=== PATIENT | female | born 1970 | race Caucasian/White ===

== ENCOUNTER 2020-05-21 09:43 | Outpatient (REF) | payer BC, SELFPAY ==
--- NOTE | 2020-05-21 09:48 | MM_ITS ---
EXAMINATION: MM SCREENING DIGITAL BREAST TOMOSYNTHESIS, BILATERAL CLINICAL INFORMATION: Screening. Asymptomatic. Family history breast cancer 2 sisters, 47-years and 46-years. The lifetime risk of breast cancer based on the Tyrer-Cuzick Model is 38%. COMPARISON: Mammography: 03/06/2019, 01/31/2018, 01/30/2017, 01/22/2017, 01/21/2016 TECHNIQUE: Digital breast tomosynthesis is performed in both the craniocaudal and mediolateral oblique views along with computer-aided detection (CAD). Synthesized 2D images are generated from the tomosynthesis. FINDINGS: There are scattered areas of fibroglandular density (ACR BI-RADS breast composition Category b). There are no significant masses, abnormal calcifications, or other abnormalities. Parenchymal pattern is similar to prior exams. There is no developing density. The axilla and skin contours are unremarkable. There is a biopsy clip marker again seen mid upper outer right breast. No significant changes. MM/MM tomosynthesis screening BI IMPRESSION: No mammographic evidence of malignancy. ASSESSMENT: BI-RADS 1: Negative RECOMMENDATION: 1. Routine annual mammography screening. 2. The lifetime risk of breast cancer based on the Tyrer-Cuzick Model is 38%. Additional annual adjunct screening with breast MRI may be of benefit in women with a risk score of 20% or greater. This patient's information was entered into a reminder system with a target due date for their next mammogram.
== END 2020-05-21 09:44 | disposition home or self-care (01) ==
LOC: HO.MAMMO 09:43
PROVIDERS: PCP Physician Assistant; Visit Provider Physician Assistant
DX: Z12.31 Encounter for screening mammogram for malignant neoplasm of breast (principal)
CPT/HCPCS: 77063; 77067

== ENCOUNTER 2020-09-28 21:17 | Emergency (ER) | payer BC, SELFPAY ==
--- NOTE | ~2020-09-28 | XR_ITS ---
EXAMINATION: XR HAND, RIGHT CLINICAL INFORMATION: Check for foreign body COMPARISON: 09/28/2020 TECHNIQUE: PA, lateral, and oblique views of the right hand. FINDINGS: No fracture or dislocation. Alignment is anatomic. Joint spaces are maintained. Radiopaque soft tissue densities seen on the prior radiograph and the second digit are no longer present. XR/XR hand RT 2V IMPRESSION: The previous radiopaque densities in the second digit soft tissues are normal longer present.
--- NOTE | ~2020-09-28 | XR_ITS ---
EXAMINATION: XR HAND, RIGHT CLINICAL INFORMATION: Right hand laceration COMPARISON: None TECHNIQUE: PA, lateral, and oblique views of the right hand. FINDINGS: No acute fractures are seen. Some well-corticated bony fragments are seen around the DIP joint of the third digit. In the first digit, some radiopaque foreign bodies are seen within the subcutaneous tissues on 2 views adjacent to the lateral mid second proximal phalanx-one is linear and another more subtle density, seen on only one view is rounder and more proximally located. XR/XR hand RT 2V IMPRESSION: No acute fracture is seen. Possible foreign bodies first digit as described above. Corticated bony densities adjacent to third DIP joint most likely chronic
[2020-09-28 22:39] VITALS: BP 171/100; PULSE 74; RESP 16; TEMP 36.2; O2SAT 99; BMI 26.6
--- NOTE | 2020-09-29 00:29 | ED_ITS ---
HPI - Wound/Laceration General Chief Complaint: Wound/Laceration Stated Complaint: hand lac Source: patient Mode of arrival: ambulatory Limitations: no limitations History of Present Illness HPI narrative: 50-year-old female with no significant past medical history presents with a laceration to the right index finger. Patient states that she was washing dishes and cut her finger on a broken piece of glass. She does have full range of motion to the extremities, presented to the emergency department because she could not control the bleeding. Onset (ago): hour(s) (Within the hour of arrival) Extremity Location: right: hand (Index finger) Place: home Patient tetanus UTD: Yes Context: accidental Associated symptoms: pain Treatments prior to arrival: bandage and tourniquet Related Data Previous Rx's Medication Instructions Recorded meloxicam 15 mg tablet 15 mg PO DAILY #30 tab 03/19/20 amoxicillin-pot clavulanate 1 tab PO Q12H 7 Days #14 tab 09/29/20 [Augmentin] Allergies Allergy/AdvReac Type Severity Reaction Status Date / Time No Known Allergies Allergy Verified 09/28/20 22:38 Review of Systems Review of Systems: Constitutional: No Fever, No Chills ENT/Mouth: No Ear Pain, No Hoarseness, No sore throat Eyes: No Eye Pain, No Swelling, No Redness, No Foreign Body Cardiovascular: No Chest Pain, No SOB Respiratory: No Cough, No Dyspnea Gastrointestinal: No Nausea, No Vomiting, No Diarrhea, No abdominal Pain Genitourinary: No Dysuria, No Hematuria Musculoskeletal: positive right index finger pain, No Myalgias, No Joint Swelling Skin: Positive right finger laceration, No rash Neuro: No Weakness, No Numbness, No Paresthesias, No Loss of Consciousness, No Dizziness, No Headache Psych: No Anxiety/Panic, No Depression Heme/Lymph: no easy bruising, no Lymphadenopathy Endocrine: No Polyuria, No Polydipsia Yes all other systems are reviewed and are negative [facility] Past Medical History Attestation statement: The following information was validated with the patient. Source: old records reviewed Medical History Collapse Collapse, lung No known health problems Social History Social History Advance Directives: No Advance Directives Information Provided: Yes Physical Exam Vital Signs: Vital Signs: Last Vital Signs Temp 97.2 F 09/28/20 22:39 Pulse 74 09/28/20 22:39 Resp 16 09/28/20 22:39 BP 171/100 H 09/28/20 22:39 Pulse Ox 99 09/28/20 22:39 Body Mass Index 26.6 Appearance: Alert. Oriented X3. No acute distress. Eyes: Pupils equal, round and reactive to light. ENT: Pharynx normal. Neck: Normal inspection. Neck supple. CVS: Normal heart rate and rhythm. Pulses normal. Respiratory: No respiratory distress. Breath sounds normal. Abdomen: Soft and nontender. Skin: Positive 8 cm laceration irregularly-shaped to right MCP joint, otherwise all other Skin warm and dry. Normal skin color. Normal skin turgor. Extremities: No lower extremity edema. Patient has full range of motion to all extremities, full range of motion to digits, no indication of tendon injury, pulses equal bilaterally. Neuro: No motor deficit. No sensory deficit. No focal neural deficits. Course Course Course Narrative: 50-year-old female presents with laceration to the right MCP joint of the index finger after cutting herself while washing dishes. X-rays indicate foreign body. Area irrigated with copious amounts of sterile saline under pressure. Prepped and draped in sterile fashion, patient tolerated procedure well, repeat x-rays obtained. Repeat x-rays show no indication of foreign body. Patient continues to have brisk capillary refill and no focal neural deficits with full range of motion approximately 30 minute status post laceration repair. Patient verbalized understanding of laceration instructions, agrees to plan of care discharge home. MDM - Wound/Laceration Differential Diagnosis Differential diagnosis: Likely laceration Medical Records Attestation: I reviewed the patient's medical records. Imaging Data Hand x-ray: Attestation: I personally reviewed and interpreted this imaging study as follows: Radiologist's impression: EXAMINATION: XR HAND, RIGHT CLINICAL INFORMATION: Right hand laceration COMPARISON: None TECHNIQUE: PA, lateral, and oblique views of the right hand. FINDINGS: No acute fractures are seen. Some well-corticated bony fragments are seen around the DIP joint of the third digit. In the first digit, some radiopaque foreign bodies are seen within the subcutaneous tissues on 2 views adjacent to the lateral mid second proximal phalanx-one is linear and another more subtle density, seen on only one view is rounder and more proximally located. XR/XR hand RT 2V IMPRESSION: No acute fracture is seen. Possible foreign bodies first digit as described above. Corticated bony densities adjacent to third DIP joint most likely chronic Hand x-ray status post laceration repair in foreign body removal: Attestation: I personally reviewed and interpreted this imaging study as follows: Radiologist's impression: EXAMINATION: XR HAND, RIGHT CLINICAL INFORMATION: Check for foreign body COMPARISON: 09/28/2020 TECHNIQUE: PA, lateral, and oblique views of the right hand. FINDINGS: No fracture or dislocation. Alignment is anatomic. Joint spaces are maintained. Radiopaque soft tissue densities seen on the prior radiograph and the second digit are no longer present. XR/XR hand RT 2V IMPRESSION: The previous radiopaque densities in the second digit soft tissues are normal longer present. Discharge Plan Discharge Clinical Impression: Laceration Patient Disposition: Home, Self-Care Instructions: Finger Laceration (ED) Additional Instructions: You were evaluated for a finger laceration. We placed 10 sutures. You may wash her hands but do not soak, wash dishes, swim or submerge your hand under water for lengthy periods of time. Please return in 10 days to have sutures removed. Please take Augmentin as directed. This medication is an antibiotic. Thank you for choosing this emergency department for evaluation. Please follow-up with primary care physician as needed. Return to the emergency department for any new, concerning, or worsening symptoms. Prescriptions: New amoxicillin-pot clavulanate [Augmentin] 875-125 mg tablet 1 tab PO Q12H 7 Days Qty: 14 RF: 0 No Action meloxicam 15 mg tablet 15 mg PO DAILY Qty: 30 RF: 3 Interventions: ED Discharge Assessment Last Done: 09/29/20 01:03 Discharge Date/Time: 09/29/20 01:04
[2020-09-29] MEDS: Amoxicillin/Potassium Clav 875 MG TABLET PO (00:46)
[2020-09-29] MEDS: Lidocaine HCl 2 % MPF 5 ML VIAL 10 ML SUBCUT (00:46)
[2020-09-29] MEDS: oxyCODONE HCl Immed Release 5 MG TABLET PO (00:46)
== END 2020-09-29 01:04 | disposition home or self-care (01) ==
PROVIDERS: Emergency Provider Student in an Organized Health Care Education/Training Program; PCP Physician Assistant
DX: S61.220A Laceration with foreign body of right index finger without damage to nail, initial encounter (principal); W25.XXXA Contact with sharp glass, initial encounter; Y93.G1 Activity, food preparation and clean up; Y92.010 Kitchen of single-family (private) house as the place of occurrence of the external cause; Y99.9 Unspecified external cause status
CPT/HCPCS: 12042; 73120; 90471; 99284

== ENCOUNTER 2021-04-27 08:14 | Outpatient (REF) | payer OTHER, SELFPAY ==
--- NOTE | ~2021-04-27 | XR_ITS ---
EXAMINATION: XR HAND, RIGHT CLINICAL INFORMATION: Right hand pain COMPARISON: 09/29/2020 TECHNIQUE: PA, lateral, and oblique views of the right hand. FINDINGS: Normal alignment with no fracture. Mild osteoarthritis with small degenerative calcifications at the 3rd DIP joint. No change. No periarticular osteopenia or erosions. 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 No change. No acute osseous abnormality.
== END 2021-04-27 08:15 | disposition home or self-care (01) ==
LOC: HO.HOSX 08:14
PROVIDERS: Visit Provider Orthopaedic Surgery
DX: M79.641 Pain in right hand (principal); S63.634A Sprain of interphalangeal joint of right ring finger, initial encounter
CPT/HCPCS: 73130

== ENCOUNTER 2021-06-18 09:37 | Outpatient (REF) | payer OTHER, SELFPAY ==
--- NOTE | ~2021-06-18 | MM_ITS ---
EXAMINATION: MM SCREENING DIGITAL BREAST TOMOSYNTHESIS, BILATERAL CLINICAL INFORMATION: Screening. Asymptomatic. Family history breast cancer, sisters x2 The lifetime risk of breast cancer based on the Tyrer-Cuzick Model is 9%. COMPARISON: Mammography: 05/21/2020, 03/06/2019, 01/31/2018 TECHNIQUE: Digital breast tomosynthesis is performed in both the craniocaudal and mediolateral oblique views along with computer-aided detection (CAD). Synthesized 2D images are generated from the tomosynthesis. FINDINGS: There are scattered areas of fibroglandular density (ACR BI-RADS breast composition Category b). There are no significant masses, abnormal calcifications, or other abnormalities. There is biopsy clip marker again noted mid upper outer right breast. The bilateral axilla and skin contours are unremarkable. There are no significant changes. MM/MM tomosynthesis screening BI IMPRESSION: No mammographic evidence of malignancy. ASSESSMENT: BI-RADS 1: Negative RECOMMENDATION: Routine annual mammography screening. This patient's information was entered into a reminder system with a target due date for their next mammogram.
== END 2021-06-18 09:38 | disposition home or self-care (01) ==
LOC: HO.MAMMO 09:37
PROVIDERS: PCP Physician Assistant; Visit Provider Physician Assistant
DX: Z12.31 Encounter for screening mammogram for malignant neoplasm of breast (principal)
CPT/HCPCS: 77063; 77067

== ENCOUNTER 2021-11-18 10:43 | Outpatient (REF) | payer OTHER, SELFPAY ==
[2021-11-18 12:16] LABS: Hematocrit 39.2 % (37.0-47.0); Hemoglobin 13.1 g/dl (12.0-16.0); Mean Corpuscular HGB Conc 33.4 g/dl (31.0-35.0); Mean Corpuscular Hemoglobin 32.8 pg (27.0-33.0); Mean Corpuscular Volume 98.2 fL (80.0-98.0); Mean Platelet Volume 9.9 fL (9.4-12.3); Platelet Count 263 X10*3/uL (160-400); Red Blood Count 3.99 X10*6/uL (4.20-5.50); Red Cell Distribution Width 12.6 % (11.0-16.0); White Blood Count 9.9 X10*3/uL (4.8-10.8)
[2021-11-18 12:54] LABS: Alanine Aminotransferase 64 U/L (0-31); Albumin Level 4.4 g/dL (3.5-5.0); Alkaline Phosphatase 47 U/L (39-117); Anion Gap 15 (12-20); Aspartate Amino Transferase 62 U/L (5-31); Bilirubin Total 0.6 mg/dL (0.0-1.0); Blood Urea Nitrogen 9 mg/dL (9-16); Calcium 9.3 mg/dL (8.4-10.2); Carbon Dioxide 26 mmol/L (22-29); Chloride 102 mmol/L (96-108); Cholesterol 205 mg/dL; Estimated Glomerular Filt Rate > 60; Glucose Fasting 77 mg/dL (60-99); HDL Cholesterol 107 mg/dL; LDL Cholesterol Calculated 89 mg/dl; Potassium 4.7 mmol/L (3.3-5.1); Sodium 138 mmol/L (135-145); Total Protein 7.7 g/dL (6.5-8.0); Triglycerides 45 mg/dL
[2021-11-18 13:14] LABS: TSH reflex Free T4 0.67 uIU/mL (0.32-4.0)
== END 2021-11-18 10:44 | disposition home or self-care (01) ==
LOC: HO.LAB 10:43
PROVIDERS: PCP Physician Assistant; Visit Provider Physician Assistant
DX: Z13.29 Encounter for screening for other suspected endocrine disorder (principal); Z13.220 Encounter for screening for lipoid disorders
CPT/HCPCS: 36415; 80053; 80061; 84443; 85027

== ENCOUNTER 2022-05-12 11:48 | Day surgery (SDC) | payer OTHER, SELFPAY ==
[2022-05-08 14:56] VITALS: BMI 24.0
--- NOTE | 2022-05-11 13:55 | HO.ANESPROP2 ---
Documented by User: Yancy Carney NP 05/11/22 13:55 HPI - Anesthesia Eval Consult details Narrative: 51yo F for Colonoscopy PMFSH Active Problems Active Problems: All Active Problems (Updated 01/20/22 @ 09:13 by ANJANA Hernandez) Preop examination (Acute) Colon cancer screening (Acute) Sprain of interphalangeal joint of right ring finger (Acute) Hand pain, right (Acute) Strain of extensor muscle, fascia and tendon of right ring finger at forearm level, initial encounter (Acute) Skin lesion of chest wall (Acute) Anxiety (Acute) Chronic left hip pain (Acute) Screening for hypothyroidism (Acute) Screening for hypercholesterolemia (Acute) Screening for diabetes mellitus (DM) (Acute) Annual physical exam (Acute) Family History Family History Mother Throat cancer Heart attack Father Lung cancer Sister Breast cancer Maternal Aunt Colon cancer Surgical History Surgical History History of lung surgery Social History Social History Housing: House Alcohol intake: current Alcohol intake frequency: 3 or more drinks per day Alcohol type: beer Patient Tobacco Use Status: Former Tobacco user Quit Date: 1991 Tobacco use type: Cigarette Years Smoked: 4 Smoked in Last 30 Days: No e-Cigarette/Vaping Use: Never Used Second Hand Smoke Exposure: No Use of substances other than those prescribed or required for medical reasons: No Are you DNR?: No Advance Directives: No Advance Directives Information Provided: Yes service: No Current occupational status: employed 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 Cognitive needs: No Hearing needs: No Vision needs: No Meds Allergies Allergy/AdvReac Type Severity Reaction Status Date / Time No Known Allergies Allergy Verified 05/12/22 11:54 Exam Exam Date and Time: May 11, 2022 1355 Height,Weight and Vital Signs: Height 5 ft 8 in Weight 71.668 kg Assessment and Plan Assessment Anesthesia Assessment: Chart Reviewed Documented by User: Alyce Dawn MD 05/12/22 12:35 PMFSH Family History Family History Mother Throat cancer Heart attack Father Lung cancer Sister Breast cancer Maternal Aunt Colon cancer Surgical History Surgical History History of lung surgery History of Problems with Anesthesia: No Social History Social History Housing: House Alcohol intake: current Alcohol intake frequency: 3 or more drinks per day Alcohol type: beer Patient Tobacco Use Status: Former Tobacco user Quit Date: 1991 Tobacco use type: Cigarette Years Smoked: 4 Smoked in Last 30 Days: No e-Cigarette/Vaping Use: Never Used Second Hand Smoke Exposure: No Use of substances other than those prescribed or required for medical reasons: No Are you DNR?: No Advance Directives: No Advance Directives Information Provided: Yes service: No Current occupational status: employed 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 Cognitive needs: No Hearing needs: No Vision needs: No Meds Allergies Allergy/AdvReac Type Severity Reaction Status Date / Time No Known Allergies Allergy Verified 05/12/22 11:54 Exam Airway Mallampati Class: II TM Dist: >3cm Loose/Missing/Broken Teeth: No Heart: RRR Lungs: CTA Assessment and Plan Assessment Anesthesia Assessment: Anesthesia Plan Discussed Final Anesthetic Review History of Problems with Anesthesia: No NPO: Yes ASA Class: II Final Preanesthetic Review: Meds/Allgs Chart Reviewed, Consent Obtained/Reviewed and Anes Risks/Benef Reviewed Patient Risk: Low Procedure Risk: Low Anesthetic Plan Anesthetic Plan: MAC: Disposition: Standard PACU
[2022-05-12 11:57] VITALS: BMI 24.6
[2022-05-12 12:06] VITALS: BP 160/78; PULSE 88; RESP 16; TEMP 36.4; O2SAT 99
[2022-05-12] MEDS: Lactated Ringers 1,000 ML 100 ML IVCONT (12:22)
--- NOTE | 2022-05-12 12:53 | MHC.SHP ---
Pre-Procedural Eval Section A Date of Service: 05/12/22 The patient is an INPATIENT: No The History & Physical has been completed within 30 days and I have reviewed it.: No Section B Chief Complaint: screening Details of Present Illness: Colon cancer screening family history of colon cancer (Maternal great aunt at an advanced age) Relevant Family History (Specify if Yes): Yes Relevant Social History: None Present Medications: see Short Stay Collaborative assessment Medical History: Significant History (Anxiety, Chronic left hip pain) History of Previous Operations: Relevant previous surgery/procedure and date(s) (Pneumothrorax repair *) Allergies: Allergies Allergy/AdvReac Type Severity Reaction Status Date / Time No Known Allergies Allergy Verified 05/12/22 11:54 Review of Systems Sugical H&P ROS: Negative: Constitution, Cardiovascular, Respiratory and Gastrointestinal Exam Surgical H&P Exam: Normal: Heart, Normal: Lungs, Normal: Extremities and Normal: Abdomen Plan Diagnosis/Plan: Unchanged I have reviewed the history and physical and performed a pertinent physical examination on my patient. No changes have occurred unless specified.
--- NOTE | 2022-05-12 12:58 | P.BOP_ITS ---
Brief Operative Note Date of Service: 05/12/22 Pre-op diagnosis: Colon cancer screening, family history of colon cancer (maternal great aunt in her 80's) Post-op diagnosis: other (COLON POLYPS, DIVERTICULOSIS, HEMORRHOIDS) Procedure: COLONOSCOPY TO CECUM WITH SNARE POLYPECTOMY Surgeon: Marilou Castro MD Anesthesia: MAC Was an Technical Services Librarian used for this Procedure?: Yes Technical Services Librarian: Chrissy Starr Estimated blood loss (mL): 0 Pathology: other (A. ascending colon polyps (2) B. transverse colon polyp) Condition: stable Disposition: PACU
--- NOTE | 2022-05-12 12:59 | W.PM.OPN ---
Operative Note Operative Note Date of Service: 05/12/22 Narrative: Pre-op diagnosis: Colon cancer screening, family history of colon cancer (maternal great aunt in her 80's) Post-op diagnosis:?other (COLON POLYPS, DIVERTICULOSIS, HEMORRHOIDS) Surgeon: Marilou Castro MD Anesthesia:?MAC COLONOSCOPY TILL CECUM WITH SNARE POLYPECTOMY Consent: Indications for the procedure and potential complications of bleeding, perforation, reaction to medications and missed diagnosis were discussed with the patient and informed consent was obtained. Instrument: Olympus PCF H 190 L variable stiffness pediatric colonoscope Monitoring: Vital signs and clinical assessment, intermittent blood pressure monitoring, continuous EKG monitoring, Pulse oximetry and Carbon Dioxide monitoring were done throughout the procedure. Colon withdrawl time was 16 minutes. Procedure: The patient was placed in the left lateral decubitis position and pre-procedure medications were administered. After a digital rectal examination of the ano-rectum, the video colonoscope was inserted into the rectum and advanced through the colon to the cecum. The colonoscope was slowly withdrawn in a retrograde panoramic fashion and the colon mucosa was carefully examined including a retroflexed view of the rectum. Findings and interventions are described below. Procedure Difficulty: Colon was long and tortuous and there was some loop formation. No maneuvers were required Findings: Terminal Ileum: Not evaluated Cecum: Normal Ascending Colon: Two 12 to 15 mm sessile polyps - removed with a hot snare Transverse Colon: A 7-8 mm sessile polyp removed with a cold snare. Descending Colon: Normal Sigmoid Colon: Moderate diverticulosis Rectum: Normal Ano-rectum: Moderate internal hemorrhoids Colon preparation: Excellent Impression and Post Procedure Diagnosis: Colonoscopy Findings: Two medium sized and one small polyps removed Moderate diverticulosis seen in the sigmoid colon Moderate hemorrhoids on retroflexed exam. Plan: Await pathology results Patient has an appointment on 05/26/22 in the GI Clinic with Roxanne Burton NP. Repeat Colonoscopy interval based on path results - in 3-5 years if polyps are adenomatous and 10 years if polyps are hyperplastic. Above findings were reviewed with the patient and colon polyps and diverticulosis handouts were given in the discharge area
[2022-05-12 13:37] VITALS: BP 126/75; PULSE 89; RESP 16; TEMP 37.4; O2SAT 98
[2022-05-12 13:52] VITALS: BP 153/85; PULSE 75; RESP 16; TEMP 37.1; O2SAT 99
== END 2022-05-12 14:20 | disposition home or self-care (01) ==
PROVIDERS: PCP Physician Assistant; Visit Provider Internal Medicine Gastroenterology
PROC: 0DJD8ZZ Inspection of Lower Intestinal Tract, Via Natural or Artificial Opening Endoscopic (ICD-10-PCS; CPT 45378; principal; 2022-05-12 12:50)
DX: Z12.11 Encounter for screening for malignant neoplasm of colon (principal); D12.2 Benign neoplasm of ascending colon; K63.5 Polyp of colon; K57.30 Diverticulosis of large intestine without perforation or abscess without bleeding; K64.8 Other hemorrhoids; K56.2 Volvulus
CPT/HCPCS: 45385; 88305

== ENCOUNTER → 2022-06-02 11:06 | Outpatient (BNVA) | payer OTHER, SELFPAY | PROVIDERS: PCP Physician Assistant; Visit Provider Nurse Practitioner | DX: D12.6 Benign neoplasm of colon, unspecified (principal) ==

== ENCOUNTER 2022-06-19 15:57 | Outpatient (REF) | payer OTHER, SELFPAY ==
--- NOTE | ~2022-06-19 | MM_ITS ---
EXAMINATION: MM SCREENING DIGITAL BREAST TOMOSYNTHESIS, BILATERAL CLINICAL INFORMATION: Screening. Asymptomatic. Family history breast cancer, 2 sisters. The lifetime risk of breast cancer based on the Tyrer-Cuzick Model is 24%. COMPARISON: Mammography: 06/18/2021, 05/21/2020, 03/06/2019 TECHNIQUE: Digital breast tomosynthesis is performed in both the craniocaudal and mediolateral oblique views along with computer-aided detection (CAD). Synthesized 2D images are generated from the tomosynthesis. FINDINGS: There are scattered areas of fibroglandular density (ACR BI-RADS breast composition Category b). There are no significant masses, abnormal calcifications, or other abnormalities. Breast tissue composition borders on heterogeneously dense. Parenchymal pattern is similar to prior studies. There is biopsy clip marker again noted right breast mid upper outer quadrant. No developing density or architectural abnormality. The axilla are unremarkable. No significant changes. MM/MM tomosynthesis screening BI IMPRESSION: No mammographic evidence of malignancy. ASSESSMENT: BI-RADS 1: Negative RECOMMENDATION: Routine annual mammography screening. This patient's information was entered into a reminder system with a target due date for their next mammogram.
== END 2022-06-19 15:58 | disposition home or self-care (01) ==
LOC: HO.MAMMO 15:57
PROVIDERS: Visit Provider Physician Assistant
DX: Z12.31 Encounter for screening mammogram for malignant neoplasm of breast (principal)
CPT/HCPCS: 77063; 77067

== ENCOUNTER 2022-06-21 07:49 | Outpatient (REF) | payer OTHER, SELFPAY ==
--- NOTE | ~2022-06-21 | XR_ITS ---
EXAMINATION: XR shoulder LT min 2V CLINICAL INFORMATION: Reason for Exam M25.512 - Pain in left shoulder COMPARISON: None TECHNIQUE: Three views of the shoulder. FINDINGS: No acute fracture or dislocation. Joint spaces are maintained without significant degenerative change. Soft tissues are unremarkable. XR/XR shoulder LT min 2V IMPRESSION: * No acute osseous abnormality.
== END 2022-06-21 07:50 | disposition home or self-care (01) ==
LOC: HO.HOSX 07:49
PROVIDERS: Visit Provider Physician Assistant
DX: M75.82 Other shoulder lesions, left shoulder (principal)
CPT/HCPCS: 20610; 73030; J1040

== ENCOUNTER 2022-08-30 11:00 | Outpatient (RCR) | payer OTHER, SELFPAY ==
--- NOTE | 2022-09-11 15:47 | MHC.PT.DC ---
[facility] [place] [facility] [place] [facility] [place] [facility] [address] Latrice Villarreal [address] [phone] F: [phone] F: [phone] F: [phone] F: [phone] Physical Therapy Discharge Report Diagnosis: LEFT SHOULDER RTC TENDONITIS (KP) Date of Surgery: Date of Evaluation: 07/18/22 Date of Discharge: 09/02/22 Treatments to Date: 7 Cancellations to Date: 6 No Shows to Date: 0 Discharge Status: Recommend MD Follow-up Visit Non-compliance Discharge Summary: Pt HAS CANCELLED 6 TOTAL VISITS OF PT INCLUDING HER LAST SCHEDULED VISIT AND IS D/ROBB FOR POOR ATTENDANCE. AT LAST ATTENDED VISIT, SHE WAS CONTINUING TO HAVE SIGNIFICANT PAIN AND MINIMAL BENEFIT FROM THERAPY. RECOMMEND MD FOLLOW UP. Electronically signed by: AIDEE LEGER PT, DPT Please sign and return to therapist. Thank you for your referral.
== END 2022-09-11 15:48 | disposition home or self-care (01) ==
LOC: HO.PT 11:00
PROVIDERS: PCP Physician Assistant; Visit Provider Physician Assistant
DX: M75.80 Other shoulder lesions, unspecified shoulder (principal)
CPT/HCPCS: 97110; 97140; 97161

== ENCOUNTER → 2022-09-14 09:26 | Outpatient (BNVA) | payer OTHER, SELFPAY | PROVIDERS: PCP Physician Assistant; Visit Provider Physician Assistant | DX: Z13.89 Encounter for screening for other disorder (principal) ==

== ENCOUNTER 2022-11-14 12:51 | Outpatient (REF) | payer OTHER, SELFPAY ==
--- NOTE | ~2022-11-14 | MR_ITS ---
EXAMINATION: MR SHOULDER WITHOUT CONTRAST, LEFT CLINICAL INFORMATION: Left shoulder pain and decreased range of motion since April 2022. COMPARISON: Left shoulder radiographs dated 06/21/2022. TECHNIQUE: Multisequence MR imaging of the left shoulder was obtained without contrast on a high-field strength scanner. FINDINGS: ROTATOR CUFF: Full-thickness partial tear involving the anterior aspect of the supraspinatus tendon measuring up to 1.9 x 2.7 cm (AP by ML) with the torn tendon fibers retracted proximal to the humeral head apex. There appear to be thin posterior supraspinatus tendon fibers which remain intact. Mild subscapularis tendinosis. No muscle atrophy or fatty infiltration. BICEPS: Intact. CORACOACROMIAL ARCH: The undersurface of the acromion is curved with small subacromial spurs. Mild acromioclavicular osteoarthritis. LABRUM/CAPSULE: Linear, intermediate fluid signal within the undersurface of the superior and posterosuperior labrum, consistent with a nondisplaced undersurface tear. Intact inferior joint capsule. GLENOHUMERAL JOINT/MARROW: Intact glenohumeral articular cartilage. No acute osseous injury. Moderate joint effusion with mild synovitis. MR/MR shoulder LT wo con IMPRESSION: 1. Full-thickness partial tear involving the anterior aspect of the supraspinatus tendon measuring 1.9 x 2.7 cm (AP x ML) with retraction of the torn tendon fibers proximal to the humeral head apex. There appear to be thin posterior supraspinatus tendon fibers which remain intact. Mild subscapularis tendinosis. 2. Mild acromioclavicular osteoarthritis with small subacromial spurs. 3. Nondisplaced undersurface tear of the superior and posterosuperior labrum. 4. Moderate glenohumeral joint effusion with mild synovitis.
== END 2022-11-14 12:52 | disposition home or self-care (01) ==
LOC: HO.MRI 12:51
PROVIDERS: PCP Physician Assistant; Visit Provider Physician Assistant
DX: S46.002D Unspecified injury of muscle(s) and tendon(s) of the rotator cuff of left shoulder, subsequent encounter (principal)
CPT/HCPCS: 73221

== ENCOUNTER 2022-12-21 10:59 | Outpatient (AMB) | payer OTHER, SELFPAY ==
[2022-12-21 11:00] VITALS: BMI 24.9
--- NOTE | 2022-12-21 11:00 | A.OFFVIS_ITS ---
Intake Vital Signs 12/21/22 11:00 Height 5 ft 8 in Weight 164 lb BMI 24.9 Intake Visit Reasons: OV- Lt shoulder MRI results/discuss surgery Intake Note: Ruth is a 52 year old female who presents today for an MRI review of her left shoulder. Patient reports that her shoulder is feeling awful She is taking tramadol but does not find it helpful Allergies No Known Allergies Allergy (Verified 11/23/22 08:09) HPI OV- Lt shoulder MRI results/discuss surgery HPI Details Ruth is a 52 year old woman who presents for an MRI review of her left shoulder pain. 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 She says her pain began in 04/2022, and has gotten worse with time. She has pain that radiates from her shoulder down her arm. She has pain with daily activities, she finds lifting activities very difficult and usually does not sleep through the night due to pain. She takes Tramadol but says this does not help her pain. 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 Cognitive needs: No Hearing needs: No Vision needs: No Review of Systems Const All systems reviewed & are unremarkable except as noted in HPI and below Physical Exam Vital Signs: BMI result Body Mass Index 24.9 Const General: no acute distress, alert and awake Orientation/consciousness: patient oriented x3 HEENT Head: Yes normocephalic and Yes atraumatic Eyes EOM: EOMs intact bilaterally Resp Effort & Inspection: normal respiratory effort and able to speak in complete sentences Cardio Jugular venous distension: no JVD Skin General skin exam: turgor normal Rashes: no rashes Neuro General: patient oriented x3 Extrem Other: Left Shoulder: 4/5 empty can Active AB possible only with scapular recruitment Psych Appearance: grossly normal Affect: normal affect Attitude: cooperative Results Reviewed Results Reviewed: I personally reviewed relevant MR images 1. Full-thickness partial tear involving the anterior aspect of the supraspinatus tendon measuring 1.9 x 2.7 cm (AP x ML) with retraction of the torn tendon fibers proximal to the humeral head apex. There appear to be thin posterior supraspinatus tendon fibers which remain intact. Mild subscapularis tendinosis. ? 2. Mild acromioclavicular osteoarthritis with small subacromial spurs. ? 3. Nondisplaced undersurface tear of the superior and posterosuperior labrum. ? 4. Moderate glenohumeral joint effusion with mild synovitis. Assessment & Plan Assessment & Plan (1) Left rotator cuff tear: Code(s): M75.102 - Unspecified rotator cuff tear or rupture of left shoulder, not specified as traumatic Qualifiers: Rotator cuff tear extent: incomplete Rotator cuff tear trauma status: nontraumatic Qualified Code(s): M75.112 - Incomplete rotator cuff tear or rupture of left shoulder, not specified as traumatic Plan: This is a 52 year old woman with a full-thickness tear of the left suprapsinatus tendon, with mild retraction but no atrophy. She has pain with daily activity, worse with lifting activities and at night. She finds no relief from tramadol and denies any other treatment. I discussed her diagnosis and treatment options. I recommend a left shoulder RTC repair. I discussed the risks, benefits, and alternatives including, but not limited to, the risk of pain, infection, stiffness, need for further surgery as well as potential medical complications such as blood clots, pulmonary embolism and cardiac complications. This is a big tear and the risk is that is is not fully repairable. I discussed this with her. I discussed the recovery timeline and process as well as the importance of PT. She would like to proceed with surgery, however she is unable to take time off of work at this moment. I explained the risks of delaying surgery and recommend this be performed in the next several months. She will speak with our SS for more information, and will follow up prn when she is ready to proceed. Plan Scribed for Yuval Valenzuela MD by Abdias Martinez, director of graduate medical education, on 12/21/22 at 11:10 AM, EST. Coding Level of Care Code Est Pt Level 4 (54525) Diagnoses Left rotator cuff tear M75.112 Rotator cuff tear extent: incomplete Rotator cuff tear trauma status: nontraumatic
== END 2022-12-21 11:33 | disposition home or self-care (01) ==
PROVIDERS: PCP Physician Assistant; Visit Provider Orthopaedic Surgery
DX: M75.112 Incomplete rotator cuff tear or rupture of left shoulder, not specified as traumatic (principal)
CPT/HCPCS: 99214

== ENCOUNTER → 2022-12-21 10:59 | Outpatient (BNVA) | payer OTHER, SELFPAY | PROVIDERS: PCP Physician Assistant; Visit Provider Orthopaedic Surgery ==

== ENCOUNTER 2022-12-29 07:41 | Outpatient (REF) | payer OTHER, SELFPAY ==
[2022-12-29 08:25] LABS: Hematocrit 39.8 % (37.0-47.0); Hemoglobin 13.2 g/dl (12.0-16.0); Mean Corpuscular HGB Conc 33.2 g/dl (31.0-35.0); Mean Corpuscular Hemoglobin 32.4 pg (27.0-33.0); Mean Corpuscular Volume 97.8 fL (80.0-98.0); Mean Platelet Volume 9.7 fL (9.4-12.3); Platelet Count 290 X10*3/uL (160-400); Red Blood Count 4.07 X10*6/uL (4.20-5.50); Red Cell Distribution Width 12.1 % (11.0-16.0); White Blood Count 7.5 X10*3/uL (4.8-10.8)
[2022-12-29 08:55] LABS: Alanine Aminotransferase 15 U/L (0-31); Albumin Level 4.2 g/dL (3.5-5.0); Alkaline Phosphatase 53 U/L (39-117); Anion Gap 19 (12-20); Aspartate Amino Transferase 19 U/L (5-31); Bilirubin Total 0.8 mg/dL (0.0-1.0); Blood Urea Nitrogen 8 mg/dL (9-16); Calcium 9.9 mg/dL (8.4-10.2); Carbon Dioxide 20 mmol/L (22-29); Chloride 103 mmol/L (96-108); Cholesterol 188 mg/dL; Estimated Glomerular Filt Rate > 60; Glucose Fasting 99 mg/dL (60-99); HDL Cholesterol 75 mg/dL; LDL Cholesterol Calculated 103 mg/dl; Sodium 137 mmol/L (135-145); Total Protein 7.7 g/dL (6.5-8.0); Triglycerides 53 mg/dL
== END 2022-12-29 07:42 | disposition home or self-care (01) ==
LOC: HO.LAB 07:41
PROVIDERS: PCP Physician Assistant; Visit Provider Physician Assistant
DX: Z13.1 Encounter for screening for diabetes mellitus (principal); E78.9 Disorder of lipoprotein metabolism, unspecified
CPT/HCPCS: 36415; 80053; 80061; 85027

== ENCOUNTER 2023-02-01 09:22 | Outpatient (AMB) | payer OTHER, SELFPAY ==
--- NOTE | 2023-02-01 09:29 | MHC.OFFVIS ---
Intake Intake Visit Reasons: Pre-Op LT RTC Repair 01/14/23NE Intake Note: Ruth is a 52 year old female who presents today for a pre op appointment for her left RTC repair, 02/14/23 NE. Allergies No Known Allergies Allergy (Verified 02/01/23 09:29) HPI Pre-Op LT RTC Repair 01/14/23NE HPI Details 52-year-old right hand dominant female who presents in the office today for her preoperative history and physical exam prior to a left shoulder rotator cuff repair to be performed on 02/14/[address] Valenzuela. Patient has no known allergy history. Patient is currently taking, as follows: -Lorazepam 0.5 mg PO bedtime PRN -Tramadol 50 mg PO daily Patient has a medical history, as follows: -Alcohol use disorder -Anxiety Patient has a surgical history, as follows: -History of colonoscopy; 2021 -History of lung surgery; Pleurodesis and pleurodectomy for pneumothorax Patient has a social history, as follows: -Alcohol 3 or more drinks daily PFSH Surgical History H/O colonoscopy History of lung surgery Family History Mother Throat cancer Heart attack Father Lung cancer Sister Breast cancer Maternal Aunt Colon cancer Social History Housing: House Alcohol intake: current Alcohol intake frequency: 3 or more drinks per day Alcohol type: beer Patient Tobacco Use Status: Former Tobacco user Quit Date: 1991 Tobacco use type: Cigarette Years Smoked: 4 e-Cigarette/Vaping Use: Never Used Second Hand Smoke Exposure: No service: No Current occupational status: employed 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 Cognitive needs: No Hearing needs: No Vision needs: No Review of Systems Const All systems reviewed & are unremarkable except as noted in HPI and below Physical Exam Const General: cooperative, healthy appearing, comfortable, no acute distress, well developed, alert and awake Orientation/consciousness: patient oriented x3 HEENT Head: Yes normal to inspection, Yes normocephalic and Yes atraumatic Eyes General: appearance normal, both eyes and all related structures EOM: EOMs intact bilaterally Neck Neck: Yes normal visual inspection and Yes no lymphadenopathy Resp Effort & Inspection: normal respiratory effort and able to speak in complete sentences Cardio Jugular venous distension: no JVD Rate: regular rate Peripheral pulses: Peripheral pulses 2+ throughout GI Inspection: Yes normal to inspection Palpation (GI): Soft to palpation Skin General skin exam: no rashes or lesions noted Rashes: no rashes Neuro General: patient oriented x3 Extrem Other: Left Shoulder: 4/5 empty can Active AB possible only with scapular recruitment Psych Appearance: grossly normal Mental Status: mental status grossly normal Affect: normal affect Attitude: cooperative Assessment & Plan Assessment & Plan (1) Left rotator cuff tear: Code(s): M75.102 - Unspecified rotator cuff tear or rupture of left shoulder, not specified as traumatic Qualifiers: Rotator cuff tear extent: incomplete Rotator cuff tear trauma status: nontraumatic Qualified Code(s): M75.112 - Incomplete rotator cuff tear or rupture of left shoulder, not specified as traumatic Plan Ms. Hargrove is a 52-year-old right hand dominant female who presents in the office today for her preoperative history and physical exam prior to a left shoulder rotator cuff repair to be performed on 02/14/[address] Valenzuela. Patient has no known allergy history. Patient is currently taking, as follows: -Lorazepam 0.5 mg PO bedtime PRN -Tramadol 50 mg PO daily Patient has a medical history, as follows: -Alcohol use disorder -Anxiety Patient has a surgical history, as follows: -History of colonoscopy; 2021 -History of lung surgery; Pleurodesis and pleurodectomy for pneumothorax Patient has a social history, as follows: -Alcohol 3 or more drinks daily I discussed in detail the procedure and what to expect pre and post operatively. We discussed the risks, benefits and alternatives to the surgery as well as the rehabilitation course. The risks; which include, but are not limited to infection, bleeding, nerve injury, ongoing pain, swelling, and stiffness, perioperative risk of injury to bones and soft tissues, and blood clots. I have answered all questions and with their understanding they have consented to move forward with a left shoulder rotator cuff repair to be performed on 02/14/[address] Yuval Valenzuela. Follow up will be at the post operative appointment on 02/19/2023 at 10:15 am, or sooner if needed. Patient Instructions: Scribed for Haylee Bergeron PA-C by major Paniagua scribe, on 02/01/2023 at 9:25 am, EST. Coding Level of Care Code Global (87865) Diagnoses Left rotator cuff tear M75.112 Rotator cuff tear extent: incomplete Rotator cuff tear trauma status: nontraumatic
== END 2023-02-01 09:59 | disposition home or self-care (01) ==
PROVIDERS: PCP Physician Assistant; Visit Provider Physician Assistant
DX: M75.112 Incomplete rotator cuff tear or rupture of left shoulder, not specified as traumatic (principal)
CPT/HCPCS: 99024

== ENCOUNTER → 2023-02-01 09:22 | Outpatient (BNVA) | payer OTHER, SELFPAY | PROVIDERS: PCP Physician Assistant; Visit Provider Physician Assistant ==

== ENCOUNTER 2023-02-14 05:57 | Day surgery (SDC) | payer OTHER, SELFPAY ==
[2023-02-09 15:38] VITALS: BMI 24.9
--- NOTE | 2023-02-13 08:38 | HO.ANESPROP2 ---
Documented by User: Yancy Carney NP 02/13/23 08:39 HPI - Anesthesia Eval Consult details Narrative: 52yo F for Left Arthroscopic Rotator Cuff Repair PMFSH Active Problems Active Problems: All Active Problems (Updated 02/09/23 @ 15:33 by Nakita Prasad RN) Alcohol use disorder (Acute) Borderline high cholesterol (Acute) Left rotator cuff tear (Acute) Tendonitis of left rotator cuff (Acute) Tubular adenoma of colon (Acute) Preop examination (Acute) Colon cancer screening (Acute) Sprain of interphalangeal joint of right ring finger (Acute) Hand pain, right (Acute) Strain of extensor muscle, fascia and tendon of right ring finger at forearm level, initial encounter (Acute) Skin lesion of chest wall (Acute) Anxiety (Acute) Chronic left hip pain (Acute) Screening for hypothyroidism (Acute) Screening for hypercholesterolemia (Acute) Screening for diabetes mellitus (DM) (Acute) Annual physical exam (Acute) Past Medical History Medical History (Updated 02/09/23 @ 15:33 by Nakita Prasad RN) Anxiety Borderline high cholesterol Family History Family History Mother Throat cancer Heart attack Father Lung cancer Sister Breast cancer Maternal Aunt Colon cancer Surgical History Surgical History H/O colonoscopy History of lung surgery History of Problems with Anesthesia: No Social History Social History Housing: House Alcohol intake: current Alcohol intake frequency: 0-2 drinks per day Alcohol type: beer Patient Tobacco Use Status: Former Tobacco user Quit Date: 1991 Tobacco use type: Cigarette Years Smoked: 4 e-Cigarette/Vaping Use: Never Used Second Hand Smoke Exposure: No service: No Current occupational status: employed 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 Cognitive needs: No Hearing needs: No Vision needs: No Meds Allergies Allergy/AdvReac Type Severity Reaction Status Date / Time No Known Allergies Allergy Verified 02/01/23 09:29 Exam Exam Date and Time: February 13, 2023 0838 Height,Weight and Vital Signs: Height 5 ft 8 in Weight 74.389 kg Pertinent Lab Results Pertinent Lab Results: Laboratory Tests 12/29/22 08:01 WBC 7.5 Hgb 13.2 Hct 39.8 Plt Count 290 Sodium 137 Potassium 5.0 Chloride 103 Carbon Dioxide 20 L BUN 8 L Creatinine 0.75 Assessment and Plan Assessment Anesthesia Assessment: Chart Reviewed Final Anesthetic Review History of Problems with Anesthesia: No Documented by User: Binu Ramirez MD 02/14/23 17:58 PMFSH Past Medical History Medical History (Updated 02/09/23 @ 15:33 by Nakita Prasad RN) Anxiety Borderline high cholesterol Functional capacity: independent ambulation Family History Family History Mother Throat cancer Heart attack Father Lung cancer Sister Breast cancer Maternal Aunt Colon cancer Family history of problems with anesthesia: No Surgical History Surgical History H/O colonoscopy History of lung surgery Social History Social History Housing: House Alcohol intake: current Alcohol intake frequency: 0-2 drinks per day Alcohol type: beer Patient Tobacco Use Status: Former Tobacco user Quit Date: 1991 Tobacco use type: Cigarette Years Smoked: 4 e-Cigarette/Vaping Use: Never Used Second Hand Smoke Exposure: No service: No Current occupational status: employed 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 Cognitive needs: No Hearing needs: No Vision needs: No Meds Allergies Allergy/AdvReac Type Severity Reaction Status Date / Time No Known Allergies Allergy Verified 02/01/23 09:29 Exam Airway Mallampati Class: III Loose/Missing/Broken Teeth: Yes Assessment and Plan Assessment Anesthesia Assessment: Anesthesia Plan Discussed Final Anesthetic Review Family History of Problems with Anesthesia: No NPO: Yes ASA Class: II Final Preanesthetic Review: Meds/Allgs Chart Reviewed, Consent Obtained/Reviewed and Anes Risks/Benef Reviewed Patient Risk: Intermediate Procedure Risk: Intermediate Anesthetic Plan Anesthetic Plan: GA, Regional Block and Agree w/ Assess. and Plan Disposition: Standard PACU
[2023-02-14] VITALS (7 sets, daily range): BP systolic 131–142; BP diastolic 81–98; PULSE 78–99; RESP 12–23; TEMP 36.1–37; O2SAT 95–100; BMI 25.2
[2023-02-14] MEDS: Lactated Ringers 1,000 ML 100 ML IVCONT (06:39)
[2023-02-14 07:28] LABS: UPreg QC Valid YES; Urine Pregnancy NEGATIVE (NEGATIVE)
--- NOTE | 2023-02-14 08:25 | MHC.SHP ---
Pre-Procedural Eval Section A Date of Service: 02/14/23 The patient is an INPATIENT: No Changes since office visit: No Cold of Flu in the past 2 weeks, No New Medical Problems, No Changes in Medication and No Patient answered all questions The History & Physical has been completed within 30 days and I have reviewed it.: Yes Section B Chief Complaint: Unspecified rotator cuff tear or rupture of left Allergies: Allergies Allergy/AdvReac Type Severity Reaction Status Date / Time No Known Allergies Allergy Verified 02/01/23 09:29 Plan I have reviewed the history and physical and performed a pertinent physical examination on my patient. No changes have occurred unless specified. Time Spent With Patient Time: Total time managing care of this patient today ____ minutes.
--- NOTE | 2023-02-14 09:49 | P.BOP_ITS ---
Brief Operative Note Date of Service: 02/14/23 Pre-op diagnosis: Left RTC tear Post-op diagnosis: same Procedure: Left RTC repair Implants: [employer] Helacoil double loaded suture anchors x 2 and Helacoil knotless x 2 Surgeon: Yuval Valenzuela MD Anesthesia: GETA and local Was an Hydroelectric Component Machinist used for this Procedure?: Yes Hydroelectric Component Machinist: Haylee Bergeron Estimated blood loss (mL): 10 IV fluids (mL): 800 Pathology: none sent Condition: stable Disposition: PACU
--- NOTE | 2023-02-26 08:31 | W.PM.OPN ---
Operative Note Operative Note Date of Service: 02/26/23 Narrative: ate of Service: 02/14/23 Pre-op diagnosis: Left RTC tear Post-op diagnosis: same Procedure: Left RTC repair Implants: [employer] Helacoil double loaded suture anchors x 2 and Helacoil knotless x 2 Surgeon: Yuval Valenzuela MD Anesthesia: GETA and local Was an Train Electronic Technician used for this Procedure?: Yes Train Electronic Technician: Haylee Bergeron Estimated blood loss (mL): 10 IV fluids (mL): 800 Pathology: none sent Condition: stable Disposition: PACU Procedure in detail: Patient was brought to the operating room and placed the the beach chair position. All bony prominences were well padded and the limb was prepped and draped in standard sterile fashion. A time out was called to identify proper site, proper procedure and proper surgeon. IV antibiotics per weight were administered. I began by making a posterolateral stab incision with a 15 blade. A blunt trochar was placed into the glenohumeral joint and I insufflated the joint with saline and a 30 degree arthroscope was placed. I established an outside- in anterior portal just distal to the biceps tendon. I then began my inspection of the glenohumeral joint. There was an intact biceps anchor. There were minimal cartilage changes at the inferior glenoid without humeral head changes. There was a full thickness undersurface RTC tear. The subcapularis was intact. I debrided the anterior interval minimally. I then removed the trochar and entered the subacromial space. A direct lateral portal was then established and I performed a bursectomy. The cuff was then examined. There was a full thickness tear of the supra and infraspinatus without retraction. The tear was mobile. I placed two medial row double loaded anchors after using a tap just adjacent to the articular cartilage and then brought the suture limbs ( 8) through the medial cuff. I then debrided the bare area down to bleeding bone and, using a cross bridge configuration, brought 4 limbs to each of two lateral 5.0 anchors. This re-approximated the cuff anatomy anatomically. Once I was satisfied with the repair final images were captured and I removed all instrumentation. Portals were closed with nylon. Patient was placed in an abduction sling, extubated and brought to the recovery room in stable condition. There were no known complications.
== END 2023-02-14 11:36 | disposition home or self-care (01) ==
PROVIDERS: PCP Physician Assistant; Visit Provider Orthopaedic Surgery
PROC: (CPT 29827; principal; 2023-02-14 07:30)
DX: M75.112 Incomplete rotator cuff tear or rupture of left shoulder, not specified as traumatic (principal); Z87.891 Personal history of nicotine dependence; F41.9 Anxiety disorder, unspecified; Z79.899 Other long term (current) drug therapy
CPT/HCPCS: 29827; 81025; C1713; J0171; J0690; J1100; J2250; J2371; J2405; J2795; J3010

== ENCOUNTER → 2023-02-14 05:57 | Outpatient (BNV) | payer OTHER, SELFPAY | PROVIDERS: PCP Physician Assistant; Visit Provider Orthopaedic Surgery | DX: M75.122 Complete rotator cuff tear or rupture of left shoulder, not specified as traumatic (principal) | CPT/HCPCS: 29827 ==

== ENCOUNTER 2023-02-19 10:26 | Outpatient (AMB) | payer OTHER, SELFPAY ==
--- NOTE | 2023-02-19 10:29 | A.OFFVIS_ITS ---
Intake Intake Visit Reasons: P/O LT RTC 02/14/23 NE Intake Note: Ruth 52 year ol female, presents today for her P/O visit for her Left RTC repair from 02/14/[address] Valenzuela. States she is experiencing soreness and throbbing but is doing well over all. Allergies No Known Allergies Allergy (Verified 02/19/23 10:36) HPI P/O LT RTC 02/14/23 NE HPI Details 52-year-old female who returns to the [facility] today for post-op left RTC repair, 01/14/[address] Valenzuela. She continues to have soreness and throbbing p ain in her shoulder but is doing well overall. She has no other concerns today. [facility] Medical History (Updated 02/09/23 @ 15:33 by Nakita Prasad RN) Anxiety Borderline high cholesterol Surgical History (Updated 02/15/23 @ 10:01 by Haylee Bergeron PA-C) H/O colonoscopy History of lung surgery Family History Mother Throat cancer Heart attack Father Lung cancer Sister Breast cancer Maternal Aunt Colon cancer Social History Housing: House Alcohol intake: current Alcohol intake frequency: 0-2 drinks per day Alcohol type: beer Patient Tobacco Use Status: Former Tobacco user Quit Date: 1991 Tobacco use type: Cigarette Years Smoked: 4 e-Cigarette/Vaping Use: Never Used Second Hand Smoke Exposure: No service: No Current occupational status: employed 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 No swelling or ecchymosis. Sensations intact. Assessment & Plan Assessment & Plan (1) S/P rotator cuff repair: Code(s): Z98.890 - Other specified postprocedural states Plan Sutures removed today, steri strips applied. She will begin physical therapy for her left shoulder on February 21 to work on ROM and periscapular stabilization, no RTC strengthening. She will continue to wear the sling weeks for at least another 6 weeks and she will see us back in [address] Valenzuela, sooner if needed. Patient Instructions: Scribed for Duane Panchal PA-C, by Jomar Chung territory sales manager medical, on 02/19/2023 at 10:15 AM EST. IDuane PA-C, have personally reviewed and agree with the information entered by the scribe. Coding Level of Care Code Global (19696) Diagnoses S/P rotator cuff repair Z98.890
== END 2023-02-19 10:52 | disposition home or self-care (01) ==
PROVIDERS: PCP Physician Assistant; Visit Provider Physician Assistant
DX: M75.102 Unspecified rotator cuff tear or rupture of left shoulder, not specified as traumatic (principal)
CPT/HCPCS: 99024

== ENCOUNTER → 2023-02-19 10:26 | Outpatient (BNVA) | payer OTHER, SELFPAY | PROVIDERS: PCP Physician Assistant; Visit Provider Physician Assistant ==

== ENCOUNTER 2023-03-26 11:57 | Outpatient (AMB) | payer OTHER, SELFPAY ==
--- NOTE | 2023-03-26 12:01 | MHC.OFFVIS ---
Intake Intake Visit Reasons: PO- f/u LT RTC repair 02/14/23-book [facility] [place] Intake Note: Ruth is a 52 year old right hand dominant female who presents today for a post operative appointment s/p Left RTC repair 02/14/[address] Valenzuela. Patient reports that she is doing well, she has no concerns at this time. Denies numbness and tingling. Allergies No Known Allergies Allergy (Verified 02/19/23 10:36) HPI PO- f/u LT RTC repair 02/14/23-book [facility] [place] HPI Details Ruth is a 52 year old woman ~6 weeks S/P left RTC repair. She says she is doing well and denies any pain. She continues to wear her sling. [facility] Medical History (Updated 02/09/23 @ 15:33 by Nakita Prasad RN) Anxiety Borderline high cholesterol Surgical History (Updated 02/15/23 @ 10:01 by Haylee Bergeron PA-C) H/O colonoscopy History of lung surgery Family History Mother Throat cancer Heart attack Father Lung cancer Sister Breast cancer Maternal Aunt Colon cancer Social History Housing: House Alcohol intake: current Alcohol intake frequency: 0-2 drinks per day Alcohol type: beer Patient Tobacco Use Status: Former Tobacco user Quit Date: 1991 Tobacco use type: Cigarette Years Smoked: 4 e-Cigarette/Vaping Use: Never Used Second Hand Smoke Exposure: No service: No Current occupational status: employed 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 Cognitive needs: No Hearing needs: No Vision needs: No Review of Systems Const All systems reviewed & are unremarkable except as noted in HPI and below Physical Exam Const General: no acute distress, alert and awake Orientation/consciousness: patient oriented x3 HEENT Head: Yes normocephalic and Yes atraumatic Eyes EOM: EOMs intact bilaterally Resp Effort & Inspection: normal respiratory effort and able to speak in complete sentences Cardio Jugular venous distension: no JVD Skin General skin exam: turgor normal Rashes: no rashes Neuro General: patient oriented x3 Extrem Other: Left Shoulder: 10 degrees ER 90 degrees passive AB Psych Appearance: grossly normal Affect: normal affect Attitude: cooperative Assessment & Plan Assessment & Plan (1) S/P rotator cuff repair: Code(s): Z98.890 - Other specified postprocedural states Plan: This is a 52 year old woman S/P left RTC repair, DOS: 02/14/23. She says she is doing well and continues to wear her sling. She will d/c her sling at this time and continue to work with PT. She will avoid any lifting or overhead activities and be mindful to not push through pain. She will follow up in 6 weeks. Plan Scribed for Yuval Valenzuela MD by Abdias Martinez, medical coding auditor, on 03/26/23 at 12:15 PM, EST. Coding Level of Care Code Global (74747) Diagnoses S/P rotator cuff repair Z98.890
== END 2023-03-26 12:17 | disposition home or self-care (01) ==
PROVIDERS: PCP Physician Assistant; Visit Provider Orthopaedic Surgery
DX: Z98.890 Other specified postprocedural states (principal)
CPT/HCPCS: 99024

== ENCOUNTER → 2023-03-26 11:57 | Outpatient (BNVA) | payer OTHER, SELFPAY | PROVIDERS: PCP Physician Assistant; Visit Provider Orthopaedic Surgery ==

== ENCOUNTER 2023-04-04 12:00 | Outpatient (RCR) | payer BC, OTHER, SELFPAY ==
--- NOTE | 2023-02-21 12:50 | MHC.PT.EP ---
[facility] [place] Office [place] Office [place] Office [address] Latrice Villarreal [address] [phone] F: [phone] F: [phone] F: [phone] F: [phone] Physical Therapy Plan of Care Date of Evaluation: 02/21/23 Date of Surgery: 02/14/23 Diagnosis: L RTC Repair Assessment: 52 y/o R-hand dominant female s/p L RTC Repair 02/14/23. Stitches were removed 02/19/23 and steri strips are intact. She has been compliant with sling with abduction pillow. At this time, she is unable to use his L arm d/t surgical precautions and therefore limited with functional activities and hobbies such as golf and bowling. Examination shows decreased L shoulder PROM, pain, normal wrist ROM, elbow extension mildly limited, and strength not tested secondary to surgical precautions. REcommend PT 2x/week for 12 weeks to address impairments, implement HEP, and optimize functional mobility. Frequency and Duration: The patient will be seen 2x/week for 12 weeks Short Term Goals: 6 weeks Compliant with HEP Improve L shoulder ROM flexion to 140 Improve L shoulder ROM ER to 45 Molder Fitting Goals: 12 weeks I with HEP and self management of sx Pt will be able to reach overhead into shelves with pain < 3/10 Pt will be able to initiate gym regime with awareness of gradual progress of weight and precautions from surgery Pt will demonstrate R shoulder AROM WFL Treatment Plan: Modalities to reduce pain, spasms and effusion. Manual therapy to restore motion and function. Therapeutic exercise to improve strength and flexibility. Neuromuscular re-education for posture and balance. Therapeutic activities to return to functional activities of daily living. Electronically signed by: Elvie Ng PT Please sign and return to therapist. Thank you for your referral.
--- NOTE | 2023-05-22 08:40 | MHC.PT.DC ---
[facility] [place] Office [place] Office [place] Office [address] Latrice Villarreal [address] [phone] F: [phone] F: [phone] F: [phone] F: [phone] Physical Therapy Discharge Report Diagnosis: L RTC Repair Date of Surgery: 02/14/23 Date of Evaluation: 02/21/23 Date of Discharge: 05/22/23 Treatments to Date: 9 Cancellations to Date: 9 No Shows to Date: 0 Discharge Status: Independent with HEP Visit Non-compliance Discharge Summary: Pt did not f/u with further visits following vacation. At time of last attended visit, we had initiated gentle strengthening and continued to encourage ROM exercises. Also educated pt not to lift and do too much as she is still in healing phase of protocol. At this time, d/c to I HEp Electronically signed by: Elvie Keating PT Please sign and return to therapist. Thank you for your referral.
== END 2023-05-22 08:40 | disposition home or self-care (01) ==
LOC: HO.PT 12:00
PROVIDERS: PCP Physician Assistant; Visit Provider Physician Assistant
DX: Z98.890 Other specified postprocedural states (principal)
CPT/HCPCS: 97110; 97140; 97161

== ENCOUNTER 2023-05-07 12:38 | Outpatient (AMB) | payer OTHER, SELFPAY ==
--- NOTE | 2023-05-07 12:40 | MHC.OFFVIS ---
Intake Vital Signs 05/07/23 12:42 Height 5 ft 7 in Weight 164 lb BMI 25.7 Intake Visit Reasons: PO- f/u LT RTC repair 02/14/23 Intake Note: Ruth is a 52 year old right hand dominant female who presents today for a post operative appointment s/p Left RTC repair 02/14/23. Patient reports that she is doing well with no conserns. Allergies No Known Allergies Allergy (Verified 02/19/23 10:36) HPI PO- f/u LT RTC repair 02/14/23 HPI Details Ruth is a 52 year old woman ~3 months S/P left RTC repair. She says she is doing well and denies any pain. She continues to work with PT and says this has been helpful. 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 She wants to know what restrictions she may have on her activities, such as lifting activities. [facility] Medical History (Updated 02/09/23 @ 15:33 by Nakita Prasad RN) Anxiety Borderline high cholesterol Surgical History (Updated 02/15/23 @ 10:01 by Haylee Bergeron PA-C) H/O colonoscopy History of lung surgery Family History Mother Throat cancer Heart attack Father Lung cancer Sister Breast cancer Maternal Aunt Colon cancer Social History Housing: House Alcohol intake: current Alcohol intake frequency: 0-2 drinks per day Alcohol type: beer Patient Tobacco Use Status: Former Tobacco user Quit Date: 1991 Tobacco use type: Cigarette Years Smoked: 4 e-Cigarette/Vaping Use: Never Used Second Hand Smoke Exposure: No service: No Current occupational status: employed 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 Cognitive needs: No Hearing needs: No Vision needs: No Review of Systems Const All systems reviewed & are unremarkable except as noted in HPI and below Physical Exam Vital Signs: BMI result Body Mass Index 25.7 Const General: no acute distress, alert and awake Orientation/consciousness: patient oriented x3 HEENT Head: Yes normocephalic and Yes atraumatic Eyes EOM: EOMs intact bilaterally Resp Effort & Inspection: normal respiratory effort and able to speak in complete sentences Cardio Jugular venous distension: no JVD Skin General skin exam: turgor normal Rashes: no rashes Neuro General: patient oriented x3 Extrem Other: Full ROM no pain with EC Psych Appearance: grossly normal Affect: normal affect Attitude: cooperative Assessment & Plan Assessment & Plan (1) S/P rotator cuff repair: Code(s): Z98.890 - Other specified postprocedural states Plan: Doing well Caution with lifting F/u as needed Plan Scribed for Yuval Valenzuela MD by Abdias Martinez, medical secretary teacher, on 05/07/23 at 12:55 PM, EST. Coding Level of Care Code Global (12715) Diagnoses S/P rotator cuff repair Z98.890
[2023-05-07 12:42] VITALS: BMI 25.7
== END 2023-05-07 12:56 | disposition home or self-care (01) ==
PROVIDERS: PCP Physician Assistant; Visit Provider Orthopaedic Surgery
DX: Z98.890 Other specified postprocedural states (principal)
CPT/HCPCS: 99024

== ENCOUNTER → 2023-05-07 12:38 | Outpatient (BNVA) | payer OTHER, SELFPAY | PROVIDERS: PCP Physician Assistant; Visit Provider Orthopaedic Surgery ==

== ENCOUNTER 2023-07-11 12:03 | Outpatient (REF) | payer BC, SELFPAY ==
--- NOTE | ~2023-07-11 | MM_ITS ---
EXAMINATION: MM SCREENING DIGITAL BREAST TOMOSYNTHESIS, BILATERAL CLINICAL INFORMATION: Screening. Asymptomatic. COMPARISON: Mammography: This study is compared with prior exams dating back to 2019. TECHNIQUE: Digital breast tomosynthesis is performed in both the craniocaudal and mediolateral oblique views along with computer-aided detection (CAD). Synthesized 2D images are generated from the tomosynthesis. FINDINGS: There are scattered areas of fibroglandular density (ACR BI-RADS breast composition Category b). There are no significant masses, abnormal calcifications, or other abnormalities. There is a biopsy tissue marker in the upper outer quadrant of the right breast. MM/MM tomosynthesis screening BI IMPRESSION: No mammographic evidence of malignancy. ASSESSMENT: BI-RADS BI-RADS 2 - Benign Findings RECOMMENDATION: Routine annual mammography screening. 1 year F/U This examination should not preclude the clinical evaluation of a suspicious palpable abnormality. This patient's information was entered into a reminder system with a target due date for their next mammogram.
== END 2023-07-11 12:04 | disposition home or self-care (01) ==
LOC: HO.MAMMO 12:03
PROVIDERS: PCP Physician Assistant; Visit Provider Physician Assistant
DX: Z12.31 Encounter for screening mammogram for malignant neoplasm of breast (principal)
CPT/HCPCS: 77063; 77067

== ENCOUNTER → 2023-07-11 12:15 | Outpatient (BNV) | payer BC, SELFPAY | PROVIDERS: PCP Physician Assistant; Visit Provider Radiology Diagnostic Radiology | DX: Z12.31 Encounter for screening mammogram for malignant neoplasm of breast (principal) | CPT/HCPCS: 77063; 77067 ==

== ENCOUNTER 2023-11-29 07:53 | Outpatient (AMB) | payer BC, SELFPAY ==
--- NOTE | 2023-11-29 08:00 | MHC.PC.OV ---
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 Psychiatric Required: No Accompanied by: Self / Same As Patient Allergies No Known Allergies Allergy (Verified 11/29/23 08:14) Medication List - Last Reconciled 11/29/23 by Mani Doss PA-C lorazepam 0.5 mg PO BEDTIME PRN 10 days Tobacco use date assessed: 11/29/23 Dental Screening Dental Screen Date: 11/29/23 Did you have a dental visit in the last 12 months?: Yes Did you have a dental problem in the last 6 months where you did not have access to dental care?: No Was dental information given to patient?: Patient has dentist HPI Annual exam HPI Details Patient is a 53 year-old female here today for an annual physical. Patient's past medical history significant for fmhx of breast cancer, generalized anxiety disorder. Recently dealing with some increased grief due to the passing of her father in April of 2023. Noted very elevated blood pressure reading today in office- has been somewhat elevated at previous visits. She is now willing to start monitoring blood pressures start low-dose lisinopril 5 mg. Fortunately asymptomatic without any headache, chest pain or dizziness. .. Alcohol use disorder: She does admit to drinking 3-4 beers a day. She does understand she needs to cut down her alcohol consumption. Most recent liver enzymes elevated ? .. ?? ? Generalized anxiety disorder:? Has been able to manage well, does use lorazepam on a very limited p.r.n. basis.? Fortunately does drink alcohol every other day 3-4 beers and a glass a wine.? She does understand that this may be above the normal limits and will try to reduce her alcohol intake.? Of note patient did have elevated liver enzymes in the past..? .. ? Family history breast cancer: She reports she has a sister that was diagnosed early on with breast cancer.? Most recent mammogram normal. .. ? .. ? Vaccine : UTD Tdap. UTD with COVID.? Up-to-date with tetanus vaccine, up-to-date with flu vaccine, needs shingles vaccine .. Mammogram:? Done in 07/2023-->? BI-RADS 1 .. 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 Colorectal cancer screening: Did colonoscopy in 2021, tubular polyp, repeat 3-5 years?? Laboratory Tests 11/12/19 11/18/21 11/18/21 10:10 10:59 10:59 RBC 3.99 L Creatinine 0.77 AST 121 H 62 H ALT 119 H 64 H Cholesterol 205 LDL Cholesterol, C alc 89 HDL Cholesterol 107 PFSH Medical History Anxiety Borderline high cholesterol Surgical History S/P rotator cuff repair H/O colonoscopy History of lung surgery Family History (Updated 11/29/23 @ 08:17 by Mani Doss PA-C) Mother Throat cancer Heart attack Father Lung cancer COPD (chronic obstructive pulmonary disease) Sister Breast cancer Maternal Aunt Colon cancer Social History (Updated 11/29/23 @ 08:18 by Mani Doss PA-C) Housing: House Alcohol intake: current Alcohol intake frequency: 0-2 drinks per day Alcohol type: beer Patient Tobacco Use Status: Former Tobacco user Tobacco use type: Cigarette Years Smoked: 4 e-Cigarette/Vaping Use: Never Used Second Hand Smoke Exposure: No service: No Current occupational status: employed 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 1. Little interest or pleasure in doing things: not at all 2. Feeling down, depressed, or hopeless: not at all 3. Trouble falling or staying asleep, or sleeping too much: not at all 4. Feeling tired or having little energy: not at all 5. Poor appetite or overeating: not at all 6. Feeling bad about yourself - or that you are a failure or have let yourself or your family down: not at all 7. Trouble concentrating on things, such as reading the newspaper or watching television: not at all 8. Moving or speaking so slowly that other people could have noticed. Or the opposite - being so fidgety or restless that you have been moving around a lot more than usual: not at all 9. Thoughts that you would be better off or of hurting yourself in some way: not at all Total score: 0 Depression Screening Interpretation: Negative Depression Screening Done: Yes 50728 - PHQ-9 Billing: Yes Source: Developed by Drs. Feliciano Masterson, Alana Mckeon, Jose Werner and colleagues, with an educational ángel from [employer]. Thrive Questionnaire Date Thrive assessed: 11/29/23 AUDIT C Alcohol Use Questionnaire (AUDIT-C) 1. How often do you have a drink containing alcohol?: 2-3 times a week 2. How many drinks containing alcohol do you have on a typical day when you are drinking?: 5 or 6 3. How often do you have six or more drinks on one occasion?: Never Total Score: 5 Score Reviewed/Action Taken: Yes (Spoke to her about alcohol use disorder, she will try to reduce) MARITZA-7 AMB Questionnaire MARITZA-7 Date MARITZA - 7 assessed: 11/29/23 Feeling nervous, anxious, or on edge: 1 = Several days Not being able to stop or control worryin = Not at all Worrying too much about different things: 0 = Not at all Trouble relaxin = Not at all Being so restless that it is hard to sit still: 0 = Not at all Becoming easily annoyed or irritable: 0 = Not at all Feeling afraid as if something awful might happen: 0 = Not at all Total MARITZA-7 score (0-4 normal; 5-9 mild; 10-14 moderate; 15-21 severe): 1 Source: Developed by Drs. Feliciano Masterson, Alana Mckeon, Jose Werner and colleagues, with an educational ángel from [employer]. MARITZA-7 Assessment Billing MARITZA-7 Assessment Tool: MARITZA-7 Assessment 68063 Review of Systems Const Denies body aches, Denies chills, Denies excessive sweating, Denies fatigue, Denies fever(s) and Denies headache(s) Eyes Denies blurry vision ENT Denies dysphagia, Denies vertigo, Denies dizziness, Denies headache(s), Denies hearing loss and Denies tinnitus Card Denies chest pain, Denies chest pain with activity, Denies syncope, Denies irregular heart rhythm and Denies dyspnea Resp Denies chest congestion, Denies cough, Denies hemoptysis, Denies dyspnea and Denies wheezing GI Denies abdominal pain, Denies melena, Denies hematochezia, Denies coffee ground emesis, Denies dysphagia, Denies diarrhea, Denies nausea and Denies vomiting Denies urinary frequency, Denies dysuria, Denies urinary hesitancy and Denies urinary urgency Musc Denies arthralgias, Denies limited range of motion, Denies muscle cramps and Denies muscle weakness Skin/Breast Denies rash and Denies skin ulcer Neuro Denies Abnormal speech present, Denies confusion, Denies vertigo, Denies dizziness, Denies syncope, Denies headache(s), Denies memory loss and Denies seizure-like activity Psych Denies anxiety, Denies confusion, Denies depression, Denies memory loss, Denies panic attacks and Denies paranoia Endo Denies excessive sweating, Denies fatigue, Denies flushing, Denies polydipsia and Denies polyuria Aller/Immun Denies wheezing Physical exam (Primary Care) Vital Signs: Last Vital Signs Pulse 83 11/29/23 08:06 BP 170/112 H 11/29/23 08:06 Pulse Ox 97 11/29/23 08:06 Oxygen Delivery Method Room Air 11/29/23 08:06 BMI result Body Mass Index 25.4 Tobacco/Smoking Status: Tobacco use Status Tobacco use date assessed 11/29/23 11/29/23 08:01 Patient Tobacco Use Status Former Tobacco user 11/29/23 08:01 Tobacco use type Cigarette 11/29/23 08:01 e-Cigarette/Vaping Use Never Used 11/29/23 08:01 PHQ-9: PHQ-9 Score PHQ-9: Total score 0 11/29/23 08:11 Depression Screening Interpretation: Negative Thrive Assessment: Date of Thrive Assessment Date Thrive assessed 11/29/23 11/29/23 08:01 Const General: cooperative, comfortable, no acute distress, alert and awake; No confusion Orientation/consciousness: oriented to person, oriented to place, patient oriented x3 and No confusion HENMT Head: Yes normocephalic Ears: external ears normal and TM's normal bilaterally Face and sinus: No sinus tenderness Mouth: Normal oral and palatal mucosa present and tongue normal Teeth and gingiva: dentition normal and gingiva normal Throat: Yes posterior oropharynx normal, Yes tonsils normal and Yes uvula midline Eyes Conjunctivae: conjunctivae normal Sclerae: sclerae normal Pupils: Equal, round and reactive pupils present EOM: EOMs intact bilaterally Direct Ophthalmoscopy: No no photophobia Neck Neck: Yes no lymphadenopathy, No tender and Yes no JVD Thyroid: Thyroid normal Carotids: no bruits Chest Chest palpation & inspection: no tenderness Resp Effort & Inspection: normal respiratory effort, no audible wheezes, not labored and no stridor Auscultation: no crackles, no rales, no rhonchi and no wheezes Cardio Jugular venous distension: no JVD Rate: regular rate, not bradycardic and not tachycardic Rhythm: regular rhythm Bruits: no carotid bruits Peripheral pulses: Peripheral pulses 2+ throughout GI Inspection: Yes normal to inspection, No abdominal wall ecchymosis and No visible herniation Palpation (GI): Soft to palpation, nontender, no guarding, not rigid and No hepatosplenomegaly present Auscultation: normoactive bowel sounds General: Yes no CVA tenderness Back/Spine/Pelvis Back: no CVA tenderness and No back tenderness Cervical Spine: cervical ROM normal Thoracic/Lumbar Spine: thoracic and lumbar spine normal to inspection, straight leg raise negative bilaterally, No thoraco-lumbar ROM limited and No lumbar spinal tenderness Skin Lesions: no lesions Rashes: no rashes Wounds: no wounds Neuro General: oriented to person, oriented to place, patient oriented x3, CN's II-XI intact bilaterally and No confusion Cranial nerves: Yes Equal, round and reactive pupils present and Yes Normal accommodation reflex present Cognition (Neuro): normal cognition Speech: No Abnormal speech present Gait exam (Neuro): Normal gait present Motor exam (neuro): 5/5 motor strength present throughout Extrem Right upper extremity: full ROM; no cyanosis Left upper extremity: full ROM; no cyanosis Right lower extremity: no edema Left lower extremity: no edema Psych Appearance: grossly normal Mental Status: mental status grossly normal Affect: normal affect Attitude: cooperative Thought process: Normal thought process present Assessment and Plan Assessment & Plan (1) Annual physical exam: Code(s): Z00.00 - Encounter for general adult medical examination without abnormal findings (2) HTN (hypertension): Code(s): I10 - Essential (primary) hypertension Qualifiers: Hypertension type: primary hypertension Qualified Code(s): I10 - Essential (primary) hypertension Plan: Very elevated blood pressure reading today in office. She is willing to start lisinopril and monitoring blood pressure at home. Will follow-up in 8 weeks to evaluate blood pressure readings and labs. Goal blood pressure be below 140/90 (3) Screening for diabetes mellitus (DM): Code(s): Z13.1 - Encounter for screening for diabetes mellitus (4) Anxiety: Code(s): F41.9 - Anxiety disorder, unspecified Plan: Patient's- maritza 7 score-1, Patient does use lorazepam on a p.r.n.basis for anxiety with good effect. Most of her anxiety is triggered by work related stress. Interested in speaking with a mental health therapist. (5) Borderline high cholesterol: Code(s): E78.9 - Disorder of lipoprotein metabolism, unspecified Plan: Patient's most recent lipid panel showing borderline high cholesterol. Patient working on lifestyle modifications and trying to reduce her drinking. Will continue to follow fasting lipid panel. (6) Alcohol use disorder: Code(s): F10.90 - Alcohol use, unspecified, uncomplicated Plan: Patient does understand she needs to cut her alcohol intake. She does report having a few beers per day. She anticipates getting a new job and will reduce her drinking. Most recent liver enzymes elevated Orders: Orders Comprehensive [place]. Panel Fast Today I10 - Essential (primary) hypertension Complete Blood Count no Diff Today I10 - Essential (primary) hypertension Lipid Panel Today E78.9 - Disorder of lipoprotein metabolism, unspecified Microalbumin, Random (w Creat) Today I10 - Essential (primary) hypertension Medications: New lisinopril 5 mg PO DAILY 30 days 30 tabs 1RF I10 - Essential (primary) hypertension Patient Instructions: Goal: Blood pressure to be below 140/90 Barriers: Adherence to physical activity and healthy eating habits Coding Level of Care Code Est Pt Prev Care 40-64y(52837) Diagnoses Annual physical exam Z00.00 Primary hypertension I10 Hypertension type: primary hypertension Screening for diabetes mellitus (DM) Z13.1 Anxiety F41.9 Borderline high cholesterol E78.9 Alcohol use disorder F10.90 Additional Codes MARITZA-7 Assessment Billing - MARITZA-7 Assessment Tool: MARITZA-7 Assessment [id number] ([id number])
[2023-11-29 08:06] VITALS: BP 170/112; PULSE 83; O2SAT 97; BMI 25.4
[2023-11-29 08:26] VITALS: BP 160/100
== END 2023-11-29 08:31 | disposition home or self-care (01) ==
LOC: HO.HMGH 07:53
PROVIDERS: PCP Physician Assistant; Visit Provider Physician Assistant
DX: Z00.00 Encounter for general adult medical examination without abnormal findings (principal); I10 Essential (primary) hypertension; Z13.1 Encounter for screening for diabetes mellitus; F41.9 Anxiety disorder, unspecified; E78.9 Disorder of lipoprotein metabolism, unspecified; F10.90 Alcohol use, unspecified, uncomplicated
CPT/HCPCS: 99396

== ENCOUNTER 2023-12-28 08:20 | Outpatient (REF) | payer BC, SELFPAY ==
[2023-12-28 08:55] LABS: Hematocrit 39.2 % (37.0-47.0); Hemoglobin 13.4 g/dl (12.0-16.0); Mean Corpuscular HGB Conc 34.2 g/dl (31.0-35.0); Mean Corpuscular Hemoglobin 32.7 pg (27.0-33.0); Mean Corpuscular Volume 95.6 fL (80.0-98.0); Mean Platelet Volume 9.5 fL (9.4-12.3); Platelet Count 278 X10*3/uL (160-400); Red Cell Distribution Width 11.9 % (11.0-16.0); White Blood Count 7.2 X10*3/uL (4.8-10.8)
[2023-12-28 09:29] LABS: Alanine Aminotransferase 17 U/L (0-31); Albumin Level 4.6 g/dL (3.5-5.0); Alkaline Phosphatase 59 U/L (39-117); Anion Gap 15 (12-20); Aspartate Amino Transferase 21 U/L (5-31); Bilirubin Total 0.6 mg/dL (0.0-1.0); Blood Urea Nitrogen 9 mg/dL (9-16); Calcium 9.8 mg/dL (8.4-10.2); Carbon Dioxide 28 mmol/L (22-29); Chloride 99 mmol/L (96-108); Cholesterol 196 mg/dL (<200); Estimated Glomerular Filt Rate > 60; Glucose Fasting 108 mg/dL (60-99); HDL Cholesterol 98 mg/dL (>40); LDL Cholesterol Calculated 89 mg/dL (<100); Potassium 4.5 mmol/L (3.3-5.1); Sodium 137 mmol/L (135-145); Triglycerides 46 mg/dL (<150)
[2023-12-28 10:55] LABS: Creatinine Urine 88.17 mg/dL; Microalbumin Urine < 5.0 mg/L
== END 2023-12-28 08:21 | disposition home or self-care (01) ==
LOC: HO.LAB 08:20
PROVIDERS: PCP Physician Assistant; Visit Provider Physician Assistant
DX: I10 Essential (primary) hypertension (principal); E78.9 Disorder of lipoprotein metabolism, unspecified
CPT/HCPCS: 36415; 80053; 80061; 82043; 82570; 85027

== ENCOUNTER 2024-01-30 09:13 | Outpatient (AMB) | payer BC, SELFPAY ==
--- NOTE | 2024-01-30 09:18 | A.OFFPC_ITS ---
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 Patient's past medical history significant for fmhx of breast cancer, generalized anxiety disorder. Hypertension: Blood pressure acceptable today in office. Is now on lisinopril 5 mg with good effect. She denies any side effects from new medication. Fortunately asymptomatic without any headache, chest pain or dizziness. .. Alcohol use disorder: Has reduced her alcohol consumption. Most recent liver enzymes stabilized.. . She does understand she needs to cut down her alcohol consumption. Most recent liver enzymes elevated ? .. ?? ? Generalized anxiety disorder:? Has been able to manage well, does use lorazepam on a very limited p.r.n. basis.? She does report recently having an episode of blurred vision while driving and feeling very anxious. She reports taking lorazepam when she got home and felt better. She is not interested in daily medication for anxiety or mental health therapy at this point. Laboratory Tests 12/29/22 12/28/23 12/28/23 08:01 08:22 08:27 RBC 4.10 L Hgb 13.4 Fasting Glucose 99 108 H Cholesterol 196 LDL Cholesterol, C alc 89 Urine Microalbumin < 5.0 PFSH Medical History Anxiety Borderline high cholesterol Surgical History S/P rotator cuff repair H/O colonoscopy History of lung surgery Family History Mother Throat cancer Heart attack Father Lung cancer COPD (chronic obstructive pulmonary disease) Sister Breast cancer Maternal Aunt Colon cancer Social History Housing: House Alcohol intake: current Alcohol intake frequency: 0-2 drinks per day Alcohol type: beer Patient Tobacco Use Status: Former Tobacco user Tobacco use type: Cigarette Years Smoked: 4 e-Cigarette/Vaping Use: Never Used Second Hand Smoke Exposure: No service: No Current occupational status: employed 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 Feliciano Masterson, Alana Mckeon, Jose Werner and colleagues, with an educational ángel from [employer]. Review of Systems Const Denies headache(s) Eyes Denies loss of vision ENT Denies vertigo, Denies dizziness, Denies headache(s) and Denies sore throat Card Denies chest pain, Denies leg edema and Denies lightheadedness Resp Denies cough, Denies hemoptysis and Denies wheezing GI Denies abdominal pain, Denies melena, Denies constipation, Denies diarrhea and D enies vomiting Denies urinary frequency, Denies dysuria and Denies urinary urgency Musc Denies arthralgias, Denies joint swelling, Denies numbness and Denies tingling Neuro Denies Abnormal speech present, Denies behavioral changes, Denies vertigo, Denies dizziness, Denies headache(s), Denies loss of vision, Denies memory loss, Denies numbness and Denies tingling Psych Denies anxiety, Denies behavioral changes, Denies depression, Denies memory loss and Denies panic attacks Erik/Lymph Denies easy bleeding and Denies easy bruising Aller/Immun Denies wheezing Physical exam (Primary Care) Vital Signs: Last Vital Signs Pulse 89 01/30/24 09:19 BP 124/76 01/30/24 09:19 Pulse Ox 100 01/30/24 09:19 Oxygen Delivery Method Room Air 01/30/24 09:19 BMI result Body Mass Index 24.6 Tobacco/Smoking Status: Tobacco use Status Tobacco use date assessed 11/29/23 01/30/24 09:23 Patient Tobacco Use Status Former Tobacco user 01/30/24 09:23 Tobacco use type Cigarette 01/30/24 09:23 e-Cigarette/Vaping Use Never Used 01/30/24 09:23 Thrive Assessment: Date of Thrive Assessment Date Thrive assessed 11/29/23 01/30/24 09:23 Const General: healthy appearing, no acute distress, alert and awake Nutritional Appearance: well nourished Orientation/consciousness: oriented to person, oriented to place and oriented to time HENMT Ears: TM's normal bilaterally General nose exam: Normal nasal mucous membranes and turbinates present Eyes Conjunctivae: conjunctivae normal Sclerae: sclerae normal Pupils: Equal, round and reactive pupils present Neck Neck: Yes no lymphadenopathy and Yes no JVD Thyroid: Thyroid normal Carotids: no bruits Resp Effort & Inspection: normal respiratory effort and not tachypneic Auscultation: no crackles, no rales, no rhonchi and no wheezes Cardio Rate: regular rate Rhythm: regular rhythm Heart sounds: no murmurs and normal S1 and S2 GI Palpation (GI): Soft to palpation, nontender, no hepatomegaly and no splenomegaly Auscultation: normal bowel sounds Skin General skin exam: no rashes or lesions noted and dry skin Neuro General: oriented to person, oriented to place and oriented to time Cranial nerves: Yes Equal, round and reactive pupils present Speech: No Abnormal speech present Gait exam (Neuro): Normal gait present Motor exam (neuro): no tremor noted Extrem Right upper extremity: full ROM Left upper extremity: full ROM Right lower extremity: full ROM; no edema Left lower extremity: full ROM; no edema Psych Mental Status: mental status grossly normal Speech and movement: Normal speech and movement present Affect: normal affect Attitude: cooperative Thought process: Normal thought process present Assessment and Plan Assessment & Plan (1) HTN (hypertension): Code(s): I10 - Essential (primary) hypertension Qualifiers: Hypertension type: primary hypertension Qualified Code(s): I10 - Essential (primary) hypertension Plan: Very elevated blood pressure reading today in office. She is willing to start lisinopril and monitoring blood pressure at home. Will follow-up in 8 weeks to evaluate blood pressure readings and labs. Goal blood pressure be below 140/90 (2) Borderline high cholesterol: Code(s): E78.9 - Disorder of lipoprotein metabolism, unspecified Plan: Patient's most recent lipid panel showing borderline high cholesterol. Patient working on lifestyle modifications and trying to reduce her drinking. Will continue to follow fasting lipid panel. (3) Acute loss of vision: Code(s): H53.139 - Sudden visual loss, unspecified eye Qualifiers: Laterality: bilateral Qualified Code(s): H53.133 - Sudden visual loss, bilateral Plan: PER HPI PATIENT DID HAVE AN EPISODE BLURRY WHITE SPARKLY VISION LOST WHILE DRIVING WEEK AGO. THIS LASTED A FEW MINUTES AND RESOLVED. SHE REPORTS SHE WAS VERY ANXIOUS DURING THAT TIME AND DID TAKE A LORAZEPAM WHEN SHE GOT HOME AND FELT MUCH BETTER. SHE HAS NO FURTHER INCIDENTS SINCE. SHE WILL BE FOLLOWING UP WITH HER EYE DOCTOR TO DO SOME RETINAL EVENTS LOCATION. WE DID TALK ABOUT PERHA PS GETTING A CTA ANGIOGRAM OF HEAD AND NECK TO EVALUATE FOR AN ARTERIAL STENOTIC DISEASE THOUGH WOULD LIKE TO HOLD OFF FOR NOW ON THIS. (4) Anxiety: Code(s): F41.9 - Anxiety disorder, unspecified Plan: As per HPI patient does report having some increased work-related stress which has been causing her more anxiety and more use of her lorazepam. She is asking for more lorazepam temporarily. She does understand the lorazepam is habit-forming and addictive and will use it on an as needed basis. We did discuss perhaps using daily medication to control her anxiety though she declines at this time. Orders: Orders Complete Blood Count no Diff 6 Months I10 - Essential (primary) hypertension Lipid Panel 6 Months E78.9 - Disorder of lipoprotein metabolism, unspecified Microalbumin, Random (w Creat) 6 Months I10 - Essential (primary) hypertension [place]. Panel Fast 6 Months I10 - Essential (primary) hypertension Medications: Changed From lorazepam 0.5 mg PO BEDTIME 10 days PRN 10 tabs 2RF anxiety F41.9 - Anxiety disorder, unspecified To lorazepam 0.5 mg PO BEDTIME PRN 15 tabs 2RF anxiety 15 days F41.9 - Anxiety disorder, unspecified From lisinopril 5 mg PO DAILY 30 days 30 tabs 1RF I10 - Essential (primary) hypertension To lisinopril 5 mg PO DAILY 90 tabs 1RF 90 days I10 - Essential (primary) hypertension Patient Instructions: Goal: Blood pressure to remain below 140/90 Barriers: Adherence to physical activity and healthy eating habits Coding Level of Care Code Est Pt Level 4 (90448) Diagnoses Primary hypertension I10 Hypertension type: primary hypertension Borderline high cholesterol E78.9 Sudden visual loss of both eyes H53.133 Laterality: bilateral Anxiety F41.9
[2024-01-30 09:19] VITALS: BP 124/76; PULSE 89; O2SAT 100; BMI 24.6
== END 2024-01-30 09:53 | disposition home or self-care (01) ==
PROVIDERS: PCP Physician Assistant; Visit Provider Physician Assistant
DX: I10 Essential (primary) hypertension (principal); E78.9 Disorder of lipoprotein metabolism, unspecified; H53.133 Sudden visual loss, bilateral; F41.9 Anxiety disorder, unspecified
CPT/HCPCS: 99214

== ENCOUNTER 2024-03-06 11:59 | Outpatient (AMB) | payer BC, SELFPAY ==
--- NOTE | 2024-03-06 12:11 | MHC.OFFVIS ---
Vital Signs 03/06/24 12:16 Height 5 ft 7 in Weight 157 lb BMI 24.6 Intake Visit Reasons: New Prob - Bilateral Hip Pain - Left>Right Allergies No Known Allergies Allergy (Verified 03/06/24 12:18) HPI HPI New Prob - Bilateral Hip Pain - Left>Right: Details: Ruth is a 53 year old female who presents today for a new problem visit with complaints of bilateral hip pain. Left hip worse than the right. Patient was seen [place] [address] Montes for left Hip bursitis. Patient reports that she is feeling soreness all the time worsened with activities. She has taken OTC medications but this does not seem to help. She has occasional radiating pain from the anterior aspect of the left hip to the knee. No previous treatments. [facility], [facility] Medical History Anxiety Borderline high cholesterol Surgical History S/P rotator cuff repair H/O colonoscopy History of lung surgery Family History Mother Throat cancer Heart attack Father Lung cancer COPD (chronic obstructive pulmonary disease) Sister Breast cancer Maternal Aunt Colon cancer Social History Housing: House Alcohol intake: current Alcohol intake frequency: 0-2 drinks per day Alcohol type: beer Patient Tobacco Use Status: Former Tobacco user Tobacco use type: Cigarette Years Smoked: 4 e-Cigarette/Vaping Use: Never Used Second Hand Smoke Exposure: No service: No Current occupational status: employed 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 Tenderness to palpation along the Office Procedures Joint Injection/Aspiration Joint Injection/Aspiration Details: Injected 1 mL of Decadron and 3 mL 1% lidocaine and 3 mL of 0.25% Marcaine. Site was prepped using aseptic technique. Patient tolerated the procedure well. Primary Site: other (Greater trochanteric bursa left hip) Approach Used: posterolateral Coding 88108 - Large joint Procedure code (CPT) selection complete Assessment & Plan Assessment & Plan (1) Greater trochanteric bursitis of left hip: Code(s): M70.62 - Trochanteric bursitis, left hip Category: Medical Plan: This is a 53-year-old woman with greater trochanteric bursitis of the left hip. I injected the greater trochanteric bursa. She may consider PT if her symptoms do not improve. Coding Level of Care Code Est Pt Level 3 (65985) Diagnoses Greater trochanteric bursitis of left hip M70.62 CPT Codes Coding - 18179 Large joint: 48261 - Large joint ([id number])
[2024-03-06 12:16] VITALS: BMI 24.6
== END 2024-03-06 13:02 | disposition home or self-care (01) ==
PROVIDERS: PCP Physician Assistant; Visit Provider Orthopaedic Surgery
DX: M70.62 Trochanteric bursitis, left hip (principal)
CPT/HCPCS: 20610; 99213

== ENCOUNTER → 2024-03-06 11:59 | Outpatient (BNVA) | payer BC, SELFPAY | PROVIDERS: PCP Physician Assistant; Visit Provider Orthopaedic Surgery | DX: M70.62 Trochanteric bursitis, left hip (principal); M25.551 Pain in right hip | CPT/HCPCS: 20610; J0665; J1100; J2003 ==

== ENCOUNTER 2024-07-16 11:19 | Outpatient (REF) | payer BC, SELFPAY | END 2024-07-16 11:20 | disposition home or self-care (01) | LOC: HO.MAMMO 11:19 | PROVIDERS: PCP Physician Assistant; Visit Provider Physician Assistant | DX: Z12.31 Encounter for screening mammogram for malignant neoplasm of breast (principal) | CPT/HCPCS: 77063; 77067 ==

== ENCOUNTER → 2024-07-16 11:30 | Outpatient (BNV) | payer BC, SELFPAY | PROVIDERS: PCP Physician Assistant; Visit Provider Internal Medicine | DX: Z12.31 Encounter for screening mammogram for malignant neoplasm of breast (principal) | CPT/HCPCS: 77063; 77067 ==

== ENCOUNTER 2024-12-03 08:26 | Outpatient (REF) | payer BC, SELFPAY ==
[2024-12-03 10:35] LABS: Hematocrit 40.3 % (37.0-47.0); Hemoglobin 13.7 g/dl (12.0-16.0); Mean Corpuscular HGB Conc 34.0 g/dl (31.0-35.0); Mean Corpuscular Hemoglobin 32.7 pg (27.0-33.0); Mean Corpuscular Volume 96.2 fL (80.0-98.0); NRBC Abs Auto 0.000 X10*3/uL (0.0-0.012); NRBC Pct Auto 0.0 /100WBC (0.0-0.2); Platelet Count 284 X10*3/uL (160-400); Red Blood Count 4.19 X10*6/uL (4.20-5.50); White Blood Count 6.2 X10*3/uL (4.8-10.8)
[2024-12-03 11:03] LABS: Alanine Aminotransferase 20 U/L (0-31); Albumin Level 4.9 g/dL (3.5-5.0); Alkaline Phosphatase 58 U/L (39-117); Anion Gap 13 (12-20); Aspartate Amino Transferase 24 U/L (5-31); Blood Urea Nitrogen 10 mg/dL (9-16); Calcium 10.0 mg/dL (8.4-10.2); Carbon Dioxide 29 mmol/L (22-29); Chloride 100 mmol/L (96-108); Cholesterol 219 mg/dL (<200); Estimated Glomerular Filt Rate > 60; HDL Cholesterol 99 mg/dL (>40); Potassium 4.8 mmol/L (3.3-5.1); Sodium 137 mmol/L (135-145); Total Protein 8.0 g/dL (6.5-8.0); Triglycerides 50 mg/dL (<150)
== END 2024-12-03 08:27 | disposition home or self-care (01) ==
LOC: HO.LAB 08:26
PROVIDERS: PCP Physician Assistant; Visit Provider Physician Assistant
DX: Z00.00 Encounter for general adult medical examination without abnormal findings (principal); I10 Essential (primary) hypertension; F41.9 Anxiety disorder, unspecified; E78.9 Disorder of lipoprotein metabolism, unspecified; G62.9 Polyneuropathy, unspecified; F51.01 Primary insomnia; F10.90 Alcohol use, unspecified, uncomplicated; Z79.899 Other long term (current) drug therapy; Z13.31 Encounter for screening for depression; Z13.39 Encounter for screening examination for other mental health and behavioral disorders
CPT/HCPCS: 36415; 80053; 80061; 82043; 82570; 85027; 96127

== ENCOUNTER 2024-12-03 08:26 | Outpatient (AMB) | payer BC, SELFPAY ==
--- NOTE | 2024-12-03 08:49 | MHC.PC.OV ---
Vital Signs 12/03/24 08:50 Height 5 ft 7 in Weight 158 lb 4 oz BMI 24.8 BP 140/82 H Blood Pressure Location Lt brachial Position Sitting Pulse 87 Pulse Source Pulse Oximeter Temp 97.1 F Temp Source Temporal Artery Scan Pulse Oximetry (%) 97 Oxygen Delivery Method Room Air Intake Visit Reasons: Annual Exam Intake Note: Patient is here today for a physical. Announcer Required: No Resume Specialist: Not Required per policy Accompanied by: Self / Same As Patient Allergies No Known Allergies Allergy (Verified 12/03/24 09:06) Medication List - Last Reconciled 12/03/24 by Mani Doss PA-C lisinopril 5 mg PO DAILY 90 days lorazepam 0.5 mg PO BEDTIME PRN 15 days Tobacco use date assessed: 12/03/24 Dental Screening Dental Screen Date: 12/03/24 Did you have a dental visit in the last 12 months?: Yes Did you have a dental problem in the last 6 months where you did not have access to dental care?: No Was dental information given to patient?: Patient has dentist HPI Annual Exam HPI Details Patient is a 54 year-old female here today for annual physical. Patient's past medical history significant for fmhx of breast cancer, generalized anxiety disorder. Concern--> reports having a burning sensation over her bilateral thighs and anterior knees over last 4-6 months. Unclear etiology at this time. She does goldberg quite often. She has not used any fteb-rys-tvyfqsm supplements for neuropathy at this time and will try to do so. Hypertension: Blood pressure slightly elevated today in office. Is now on lisinopril 5 mg with good effect. She denies any side effects from new medication. Fortunately asymptomatic without any headache, chest pain or dizziness. .. Alcohol use disorder: Has reduced her alcohol consumption. Most recent liver enzymes stabilized.. . She does understand she needs to cut down her alcohol consumption. Most recent liver enzymes elevated ? .. ?? ? Generalized anxiety disorder:? Has been able to manage well, does use lorazepam on a very limited p.r.n. basis.? She does report recently having an episode of blurred vision while driving and feeling very anxious. She reports taking lorazepam when she got home and felt better. She is not interested in daily medication for anxiety or mental health therapy at this point. Vaccine : UTD Tdap. UTD with COVID.? Up-to-date with tetanus vaccine, up-to-date with flu vaccine, needs shingles vaccine .. Mammogram:? Done in 07/2024-->? BI-RADS 1 .. [facility]: Did go to [facility] [place] In [place]. Colorectal cancer screening: Did colonoscopy in 2021, tubular polyp, repeat 3-5 years?? [facility] Medical History Anxiety Borderline high cholesterol Surgical History S/P rotator cuff repair H/O colonoscopy History of lung surgery Family History Mother Throat cancer Heart attack Father Lung cancer COPD (chronic obstructive pulmonary disease) Sister Breast cancer Maternal Aunt Colon cancer Social History (Updated 12/03/24 @ 09:10 by Mani Doss PA-C) Housing: House Alcohol intake: current Alcohol intake frequency: 0-2 drinks per day Alcohol type: beer Patient Tobacco Use Status: Former Tobacco user Tobacco use type: Cigarette Years Smoked: 4 e-Cigarette/Vaping Use: Never Used Second Hand Smoke Exposure: Yes service: No Current occupational status: employed 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 1. Little interest or pleasure in doing things: not at all 2. Feeling down, depressed, or hopeless: not at all 3. Trouble falling or staying asleep, or sleeping too much: more than half the days 4. Feeling tired or having little energy: not at all 5. Poor appetite or overeating: not at all 6. Feeling bad about yourself - or that you are a failure or have let yourself or your family down: not at all 7. Trouble concentrating on things, such as reading the newspaper or watching television: not at all 8. Moving or speaking so slowly that other people could have noticed. Or the opposite - being so fidgety or restless that you have been moving around a lot more than usual: not at all 9. Thoughts that you would be better off or of hurting yourself in some way: not at all Total score: 2 Depression Screening Interpretation: Positive Depression Screening Follow-up: Existing condition Depression Screening Done: Yes 74151 - PHQ-9 Billing: Yes Source: Developed by Drs. Feliciano Masterson, Alana Mckeon, Jose Werner and colleagues, with an educational ángel from [employer]. Thrive Questionnaire Date Thrive assessed: 11/28/24 I am a: Patient What is your living situation today?: I have a steady place to live Within the past 12 months, did the food you bought not last and you didn't have the money to get more?: Often true Within the past 12 months, did you worry whether your food would run out before you got money to buy more?: Never true Do you have trouble paying for medicines?: No Do you have trouble getting transportation to medical appointments?: No Do you have trouble paying your heating and electricity bill?: No Do you have trouble taking care of your child, family member or friend?: No Do you have trouble with day-to-day activities such as bathing, preparing meals, shopping, managing finances, etc.?: No Are you currently unemployed and looking for a job?: No Are you interested in more education?: No Please select the resources that you would like help with: None Currently or been in a relationship where the following occur: No concerns reported THRIVE Score: 1 AUDIT C Alcohol Use Questionnaire (AUDIT-C) 1. How often do you have a drink containing alcohol?: 4 or more times a week Total Score: 4 MARITZA-7 AMB Questionnaire MARITZA-7 Date MARITZA - 7 assessed: 12/03/24 Feeling nervous, anxious, or on edge: 2 = More than half the days Not being able to stop or control worryin = More than half the days Worrying too much about different things: 2 = More than half the days Trouble relaxin = More than half the days Being so restless that it is hard to sit still: 2 = More than half the days Becoming easily annoyed or irritable: 0 = Not at all Feeling afraid as if something awful might happen: 2 = More than half the days Total MARITZA-7 score (0-4 normal; 5-9 mild; 10-14 moderate; 15-21 severe): 12 Source: Developed by Drs. Feliciano Masterson, Alana Mckeon, Jose Werner and colleagues, with an educational ángel from [employer]. MARITZA-7 Assessment Billing MARITZA-7 Assessment Tool: MARITZA-7 Assessment 51470 Review of Systems Const Denies body aches, Denies chills, Denies excessive sweating, Denies fatigue, Denies fever(s) and Denies headache(s) Eyes Denies blurry vision ENT Denies dysphagia, Denies vertigo, Denies dizziness, Denies headache(s), Denies hearing loss and Denies tinnitus Card Denies chest pain, Denies chest pain with activity, Denies syncope, Denies irregular heart rhythm and Denies dyspnea Resp Denies chest congestion, Denies cough, Denies hemoptysis, Denies dyspnea and Denies wheezing GI Denies abdominal pain, Denies melena, Denies hematochezia, Denies coffee ground emesis, Denies dysphagia, Denies diarrhea, Denies nausea and Denies vomiting Denies urinary frequency, Denies dysuria, Denies urinary hesitancy and Denies urinary urgency Musc Denies arthralgias, Denies limited range of motion, Denies muscle cramps and Denies muscle weakness Skin/Breast Denies rash and Denies skin ulcer Neuro Denies Abnormal speech present, Denies confusion, Denies vertigo, Denies dizziness, Denies syncope, Denies headache(s), Denies memory loss and Denies seizure-like activity Psych Denies anxiety, Denies confusion, Denies depression, Denies memory loss, Denies panic attacks and Denies paranoia Endo Denies excessive sweating, Denies fatigue, Denies flushing, Denies polydipsia and Denies polyuria Aller/Immun Denies wheezing Physical exam (Primary Care) Vital Signs: Last Vital Signs Temp 97.1 F 12/03/24 08:50 Pulse 87 12/03/24 08:50 BP 140/82 H 12/03/24 08:50 Pulse Ox 97 12/03/24 08:50 Oxygen Delivery Method Room Air 12/03/24 08:50 BMI result Body Mass Index 24.8 Tobacco/Smoking Status: Tobacco use Status Tobacco use date assessed 12/03/24 12/03/24 08:55 Patient Tobacco Use Status Former Tobacco user 12/03/24 08:55 Tobacco use type Cigarette 12/03/24 08:55 e-Cigarette/Vaping Use Never Used 12/03/24 08:55 PHQ-9: PHQ-9 Score PHQ-9: Total score 2 12/03/24 08:55 Depression Screening Interpretation: Positive Depression Screening Follow-up: Existing condition Thrive Assessment: Date of Thrive Assessment Date Thrive assessed 11/28/24 12/03/24 08:55 Currently or been in a relationship where the following occur: No concerns reported Const General: cooperative, comfortable, no acute distress, alert and awake; No confusion Orientation/consciousness: oriented to person, oriented to place, patient oriented x3 and No confusion HENMT Head: Yes normocephalic Ears: external ears normal and TM's normal bilaterally Face and sinus: No sinus tenderness Mouth: Normal oral and palatal mucosa present and tongue normal Teeth and gingiva: dentition normal and gingiva normal Throat: Yes posterior oropharynx normal, Yes tonsils normal and Yes uvula midline Eyes Conjunctivae: conjunctivae normal Sclerae: sclerae normal Pupils: Equal, round and reactive pupils present EOM: EOMs intact bilaterally Direct Ophthalmoscopy: No no photophobia Neck Neck: Yes no lymphadenopathy, No tender and Yes no JVD Thyroid: Thyroid normal Carotids: no bruits Chest Chest palpation & inspection: no tenderness Resp Effort & Inspection: normal respiratory effort, no audible wheezes, not labored and no stridor Auscultation: no crackles, no rales, no rhonchi and no wheezes Cardio Jugular venous distension: no JVD Rate: regular rate, not bradycardic and not tachycardic Rhythm: regular rhythm Bruits: no carotid bruits Peripheral pulses: Peripheral pulses 2+ throughout GI Inspection: Yes normal to inspection, No abdominal wall ecchymosis and No visible herniation Palpation (GI): Soft to palpation, nontender, no guarding, not rigid and No hepatosplenomegaly present Auscultation: normoactive bowel sounds General: Yes no CVA tenderness Back/Spine/Pelvis Back: no CVA tenderness and No back tenderness Cervical Spine: cervical ROM normal Thoracic/Lumbar Spine: thoracic and lumbar spine normal to inspection, straight leg raise negative bilaterally, No thoraco-lumbar ROM limited and No lumbar spinal tenderness Skin Lesions: no lesions Rashes: no rashes Wounds: no wounds Neuro General: oriented to person, oriented to place, patient oriented x3, CN's II-XI intact bilaterally and No confusion Cranial nerves: Yes Equal, round and reactive pupils present and Yes Normal accommodation reflex present Cognition (Neuro): normal cognition Speech: No Abnormal speech present Gait exam (Neuro): Normal gait present Motor exam (neuro): 5/5 motor strength present throughout Extrem Right upper extremity: full ROM; no cyanosis Left upper extremity: full ROM; no cyanosis Right lower extremity: no edema Left lower extremity: no edema Psych Appearance: grossly normal Mental Status: mental status grossly normal Affect: normal affect Attitude: cooperative Thought process: Normal thought process present Coding Level of Care Code Est Pt Prev Care 40-64y(53277) Diagnoses Annual physical exam Z00.00 Primary hypertension I10 Hypertension type: primary hypertension Anxiety F41.9 Borderline high cholesterol E78.9 Neuropathy G62.9 Primary insomnia F51.01 Insomnia type: primary Alcohol use disorder F10.90 Additional Codes PHQ-9 - 88584 - PHQ-9 Billing: Yes ([id number]) MARITZA-7 Assessment Billing - MARITZA-7 Assessment Tool: MARITZA-7 Assessment 07641 ([id number]) Assessment & Plan Assessment & Plan (1) Annual physical exam: Code(s): Z00.00 - Encounter for general adult medical examination without abnormal findings Category: Medical Plan: As per HPI (2) HTN (hypertension): Code(s): I10 - Essential (primary) hypertension Category: Medical Qualifiers: Hypertension type: primary hypertension Qualified Code(s): I10 - Essential (primary) hypertension Plan: Patient's blood pressure slightly elevated today in office, she reports being a bit stressed and irritated today. She is consistent with the use of her lisinopril. Goal blood pressures to be below 140/90 (3) Anxiety: Code(s): F41.9 - Anxiety disorder, unspecified Category: Medical Plan: Patient's MARITZA-7 score positive for anxiety which has been existing condition for her. Patient does use lorazepam as needed basis mostly for sleep, she does have a stressful job though feels she is able to handle her anxiety and stress fairly well. (4) Borderline high cholesterol: Code(s): E78.9 - Disorder of lipoprotein metabolism, unspecified Category: Medical Plan: Patient has a history of borderline high cholesterol, has been working on lifestyle and dietary modifications to reduce her cholesterol. Goal LDL is to be below 130 (5) Neuropathy: Code(s): G62.9 - Polyneuropathy, unspecified Category: Medical Plan: Patient reporting signs symptoms consistent with a neuropathy in her lower extremities, she reports having a burning sensation over her thighs and anterior knees bilaterally over the last 3-6 months (6) Insomnia: Code(s): G47.00 - Insomnia, unspecified Category: Medical Qualifiers: Insomnia type: primary Qualified Code(s): F51.01 - Primary insomnia Plan: Patient reporting having difficulty with staying asleep. Will try hydroxyzine 10-20 mg before bed to help her sleep. (7) Alcohol use disorder: Code(s): F10.90 - Alcohol use, unspecified, uncomplicated Category: Medical Plan: Patient does admit that she drinks a few beers almost every day. She does understand is not good for her health. She will try to cut down her alcohol consumption. Medications: New hydroxyzine HCl 20 mg (2 x 10 mg) PO BEDTIME 14 tabs 0RF 7 days F41.9 - Anxiety disorder, unspecified, F51.01 - Primary insomnia
[2024-12-03 08:50] VITALS: BP 140/82; PULSE 87; TEMP 36.2; O2SAT 97; BMI 24.8
== END 2024-12-03 09:23 | disposition home or self-care (01) ==
LOC: HO.HMCH 08:27
PROVIDERS: PCP Physician Assistant; Visit Provider Physician Assistant
DX: Z00.00 Encounter for general adult medical examination without abnormal findings (principal); I10 Essential (primary) hypertension; F41.9 Anxiety disorder, unspecified; E78.9 Disorder of lipoprotein metabolism, unspecified; G62.9 Polyneuropathy, unspecified; F51.01 Primary insomnia; F10.90 Alcohol use, unspecified, uncomplicated

== ENCOUNTER 2025-01-01 06:46 | Outpatient (REF) | payer BC, SELFPAY ==
--- NOTE | ~2025-01-01 | XR_ITS ---
EXAMINATION: XR PELVIS CLINICAL INFORMATION: M25.559 - Pain in unspecified hip COMPARISON: December 03, 2019. TECHNIQUE: AP view of the pelvis. FINDINGS: Bony pelvis is intact. Sclerosis along the articular surface of the acetabulum, bilaterally. No lytic or blastic lesions. Sclerosis in the sacroiliac joints, bilaterally. XR/XR pelvis 1-2V IMPRESSION: No acute fracture. Mild osteoarthrosis/osteoarthritis, both hips. Electronically signed by: Telly Chester MD 01/01/2025 10:58 AM EDT
== END 2025-01-01 06:47 | disposition home or self-care (01) ==
LOC: HO.HOSX 06:46
PROVIDERS: Visit Provider Orthopaedic Surgery
DX: M70.61 Trochanteric bursitis, right hip (principal); M25.551 Pain in right hip
CPT/HCPCS: 20610; 72170; J0665; J1100; J2003

== ENCOUNTER 2025-01-01 10:33 | Outpatient (AMB) | payer BC, SELFPAY ==
--- NOTE | 2025-01-01 10:41 | A.OFFVIS_ITS ---
Vital Signs 01/01/25 10:42 Height 5 ft 7 in Weight 158 lb BMI 24.7 Intake Visit Reasons: New prob- Righ hip pain Intake Note: Ruth is a 54 year old female who presents today for a New Problem Visit with complaints of Right Hip Pain. Patient reports pain in the lateral aspect of her hip that has been going on for about 2 months. She feels her hip popping out when she does a twisting motion, causing a sense of tingling radiating down to her knee. Has taken ibuprofen, with no relief. Denies any previous treatment or injury. Allergies No Known Allergies Allergy (Verified 01/01/25 10:46) HPI HPI New prob- Righ hip pain: Details: Ruth comes in with complaint of lateral right hip pain. She has active but states that she has difficulty sleeping on it or going up and downstairs. The pain localizes to the right greater trochanter. She has had a similar problem on the contralateral hip and this was injected and she had relief. She denies groin pain. She denies numbness and tingling. She denies injury. [facility] Medical History Anxiety Borderline high cholesterol Surgical History S/P rotator cuff repair H/O colonoscopy History of lung surgery Family History Mother Throat cancer Heart attack Father Lung cancer COPD (chronic obstructive pulmonary disease) Sister Breast cancer Maternal Aunt Colon cancer Social History (Updated 12/03/24 @ 09:10 by Mani Doss PA-C) Housing: House Alcohol intake: current Alcohol intake frequency: 0-2 drinks per day Alcohol type: beer Patient Tobacco Use Status: Former Tobacco user Tobacco use type: Cigarette Years Smoked: 4 e-Cigarette/Vaping Use: Never Used Second Hand Smoke Exposure: Yes service: No Current occupational status: employed 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 She is appropriately condition and her skin of her right hip is clean and dry. She does have sharp tenderness over the bursa of the greater trochanter. She has no groin pain with full range of motion bilateral hips. Office Procedures Joint Inj/Aspir; Non-Pain Clin Joint Injection/Drain Details: Injected 1 mL of Decadron and 3 mL 1% lidocaine and 3 mL of 0.25% Marcaine. Site was prepped using aseptic technique. Patient tolerated the procedure well. Shoulders, Hips, Knees, Hip Injection Large Joint : Right Hip (Greater trochanter) Coding Procedure code (CPT) selection complete Results Reviewed Results Reviewed: I personally reviewed relevant radiographs. Mild arthritis bilateral hips Assessment & Plan Assessment & Plan (1) Greater trochanteric bursitis of right hip: Code(s): M70.61 - Trochanteric bursitis, right hip Category: Medical Plan: Right hip trochanteric bursitis. I injected the right hip. She doesn't have time for PT. I showed her some stretching exercises for the IT band and gluteals. Orders: Orders XR pelvis 1-2V 01/01/25 M25.559 - Pain in unspecified hip Coding Level of Care Code Est Pt Level 3 (01849) Diagnoses Greater trochanteric bursitis of right hip M70.61 CPT Codes Shoulders, Hips, Knees, - Hip Injection Large Joint : Right Hip ([id number])
[2025-01-01 10:42] VITALS: BMI 24.7
== END 2025-01-01 11:30 | disposition home or self-care (01) ==
LOC: HO.HOS 10:34
PROVIDERS: PCP Physician Assistant; Visit Provider Orthopaedic Surgery
DX: M70.61 Trochanteric bursitis, right hip (principal)
CPT/HCPCS: 20610; 99213

== ENCOUNTER → 2025-01-01 10:35 | Outpatient (BNV) | payer BC, SELFPAY | PROVIDERS: Visit Provider Radiology Diagnostic Radiology | DX: M16.10 Unilateral primary osteoarthritis, unspecified hip (principal) | CPT/HCPCS: 72170 ==